=== PATIENT | female | born 1940 | race Caucasian/White ===

== ENCOUNTER 2016-04-06 14:04 | Emergency (ER) | payer OTHER ==
[~2016-04-06] VITALS: Ht 165.1 cm; Wt 90.0 kg
[~2016-04-06 14:04] MED LIST: AMLO-218 PO; BENA40TA41 PO; CARV6.25 PO; FLUO20CA38 PO; FURO-109 PO; GLIM4TAB PO; HYD25 PO; LORA0.5T PO; METF1000 PO; OMEP20CA16 PO; POTA8TAB2 PO; PROTONIX PAL; STOOL SOFTNER; VITAMIN D; ZOC10 PO
[2016-04-06 14:06] VITALS: Ht 165.1 cm; Wt 90.0 kg
[2016-04-06] MEDS ORDERED: SOD CHLORIDE 0.9% 1,000 ML IV STA (14:16)
[2016-04-06 14:32] LABS: BASOPHILS % 0.3 % (0.0-2.0); EOSINOPHILS # 0.2 10^3/ul (0.0-0.5); EOSINOPHILS % 2.8 % (0.0-7.0); HEMATOCRIT 41.2 % (37.0-47.0); HEMOGLOBIN 14.5 g/dl (12.0-16.0); LYMPHOCYTES # 1.6 10^3/ul (0.8-2.9); LYMPHOCYTES % 21.2 % (15.0-51.0); MEAN CORPUSCULAR HGB CONC 35.1 g/dl (32.0-37.0); MEAN CORPUSCULAR VOLUME 82.6 fl (82.0-101.0); MONOCYTE # 0.3 10^3/ul (0.3-0.9); MONOCYTES % 4.3 % (0.0-11.0); NEUTROPHIL # 5.3 10^3/ul (1.6-7.5); NEUTROPHILS % 71.4 % (39.0-77.0); PLATELET COUNT 245 10^3/UL (140-440); RED BLOOD COUNT 4.99 10^6/ul (4.20-5.40); RED CELL DISTRIBUTION WIDTH 13.4 % (11.5-14.5); UNCORRECTED WBC 7.4 10^3/ul (4.8-10.8); WHITE BLOOD COUNT 7.4 10^3/ul (4.8-10.8)
[2016-04-06 14:33] LABS: CONDITION 1
[2016-04-06 14:36] LABS: CHLORIDE 99 mmol/L (97-110)
[2016-04-06 14:37] LABS: POTASSIUM 3.2 mmol/L (3.5-5.1); SODIUM 143 mmol/L (135-144)
[2016-04-06 14:38] LABS: INR 0.91; PROTIME 12.3 Sec (12.2-14.2)
[2016-04-06 14:39] LABS: ANION GAP 16 (8-16); CARBON DIOXIDE 31 mmol/L (21-31); CREATININE 0.85 mg/dl (0.44-1.00); PARTIAL THROMBOPLASTIN TIME 28.6 Sec (25.0-35.0)
[2016-04-06 14:40] LABS: BLOOD UREA NITROGEN 20 mg/dl (7-20); CALCIUM 9.1 mg/dl (8.4-10.2); GLUCOSE 319 mg/dl (70-220)
--- NOTE | 2016-04-06 14:54 | RADRPT ---
PROCEDURE: XR Chest. CLINICAL INDICATION: Anxiety, chest pain TECHNIQUE: Anterior chest x-ray. COMPARISON: 08/17/2014 FINDINGS: The lungs are clear. No pleural effusion identified. There is no evidence of pneumothorax. The heart size is large. There is atherosclerotic calcification of the aorta. The cardiomediastina l silhouette is unremarkable. The soft tissues are normal. Osseous structures are unremarkable. IMPRESSION: 1. No acute disease is seen in the chest. 2. Cardiomegaly. 3. Atherosclerotic calcification of the aorta. RPTAT: QQ .Ryan Edwards MD, Date Time Electronically viewed and signed by .Ryan Edwards MD, on 04/06/2016 14:54 .M/
[2016-04-06 14:59] LABS: ADD UMIC YES; URINE BILIRUBIN (Dip) NEGATIVE (NEGATIVE); URINE BLOOD (Dip) NEGATIVE (NEGATIVE); URINE COLOR LT. YELLOW (YELLOW); URINE GLUCOSE (Dip) >=1000 % (NEGATIVE); URINE KETONES (Dip) NEGATIVE (NEGATIVE); URINE LEUKOCYTE ESTERASE (Dip) NEGATIVE (NEGATIVE); URINE NITRITE (Dip) NEGATIVE (NEGATIVE); URINE TOTAL PROTEIN (Dip) 1+ (NEGATIVE); URINE UROBILINOGEN (Dip) 0.2 E.U./dL (0.1-1.0)
[2016-04-06 15:16] LABS: SQUAMOUS EPITHELIAL CELL,UR FEW; URINE RBCS 0-2 /HPF (0)
[2016-04-06 15:17] LABS: TROPONIN-I < 0.012 ng/ml (0.00-0.12)
[2016-04-06] MEDS ORDERED: ALPRAZOLAM 0.25 MG TAB PO ONE (16:00)
[2016-04-06] MEDS ORDERED: POTASSIUM CHLORIDE (SR) 20 MEQ TAB PO STA (16:19)
[2016-04-06] MEDS ORDERED: HYDR25CA PO (16:26)
--- NOTE | 2016-04-06 16:35 | ERD ---
ER Documentation Chief Complaint Date/Time DATE: 04/06/16 TIME: 16:28 Chief Complaint anxiety ROS All systems reviewed and are negative except as per history of present illness. Medications Home Meds Active Scripts Hydroxyzine Pamoate* (Vistaril*) 25 Mg Capsule, 25 MG PO Q6H Y for ANXIETY, #10 CAP Prov:ADDY MCCAULEY DO 04/06/16 Reported Medications [Vitamin D] No Conflict Check 12/06/15 [Stool Softner] No Conflict Check 12/06/15 [Protonix] No Conflict Check, 40 MG PAL 12/06/15 Omeprazole* (Omeprazole*) 20 Mg Capsule.dr, 20 MG PO DAILY, CAP 08/17/14 Fluoxetine Hcl* (Prozac*) 20 Mg Capsule, 20 MG PO DAILY, CAP 08/17/14 Hydrochlorothiazide* (Hydrochlorothiazide*) 25 Mg Tab, 25 MG PO DAILY, TAB 08/17/14 Lorazepam* (Lorazepam*) 0.5 Mg Tablet, 0.5 MG PO HS Y for ANXIETY, TAB 08/17/14 Glimepiride* (Glimepiride*) 4 Mg Tablet, 4 MG PO DAILY, TAB 08/17/14 Simvastatin (Simvastatin) 10 Mg Tablet, 10 MG PO HS, TAB 08/17/14 Potassium Chloride* (Klor-Con*) 8 Meq Tablet.sa, 8 MEQ PO DAILY, TAB 08/17/14 Metformin Hcl* (Metformin Hcl*) 1,000 Mg Tablet, 1000 MG PO BID, TAB 08/17/14 Furosemide* (Lasix*) 40 Mg Tablet, 40 MG PO DAILY, TAB 08/17/14 Carvedilol* (Coreg*) 6.25 Mg Tablet, 6.25 MG PO BID, TAB 08/17/14 Benazepril Hcl* (Benazepril Hcl*) 40 Mg Tablet, 40 MG PO DAILY, TAB 08/17/14 Amlodipine Besylate* (Norvasc*) 10 Mg Tablet, 10 MG PO DAILY, TAB 08/17/14 Allergies Allergies: Coded Allergies: codeine (Verified Allergy, Mild, 08/17/14) morphine (Verified Allergy, Unknown, 08/17/14) PMhx/Soc History of Surgery: Yes (HYSTERECTOMY, CHOLECYSESTOMY, LOWER BACK TUMOR REMOVAL ) Anesthesia Reaction: No Hx Neurological Disorder: No Hx Respiratory Disorders: No Hx Cardiac Disorders: Yes (HYPERTENSION) Hx Psychiatric Problems: Yes (DEPRESSION) Hx Miscellaneous Medical Probl: Yes (HYPERLIPIDEMIA) Hx Alcohol Use: No Hx Substance Use: No Hx Tobacco Use: No Smoking Status: Never smoker Physical Exam Vitals Vital Signs Date Time Temp Pulse Resp B/P Pulse Ox O2 Delivery O2 Flow Rate FiO2 04/06/16 14:27 Nasal Cannula 2 04/06/16 14:06 98.1 88 20 158/85 99 Physical Exam Const: [] Head: Atraumatic Eyes: Normal Conjunctiva ENT: Normal External Ears, Nose and Mouth. Neck: Full range of motion..~ No meningismus. Resp: Clear to auscultation bilaterally Cardio: Regular rate and rhythm, no murmurs Abd: Soft, non tender, non distended. Normal bowel sounds Skin: No petechiae or rashes Back: No midline or flank tenderness Ext: No cyanosis, or edema Neur: Awake and alert Psych: Normal Mood and Affect Result Diagram: 04/06/16 1414 04/06/16 1414 Results 24 hrs Laboratory Tests Test 04/06/16 14:14 04/06/16 14:40 Activated Partial Thromboplast Time 28.6Sec Anion Gap 16 Basophils # 0.010^3/ul Basophils % 0.3% Blood Urea Nitrogen 20mg/dl Calcium Level 9.1mg/dl Carbon Dioxide Level 31mmol/L Chloride Level 99mmol/L Creatinine 0.85mg/dl Eosinophils # 0.210^3/ul Eosinophils % 2.8% Glucose Level 319mg/dl Hematocrit 41.2% Hemoglobin 14.5g/dl INR International Normalized Ratio 0.91 Lymphocytes # 1.610^3/ul Lymphocytes % 21.2% Mean Corpuscular Hemoglobin 29.0pg Mean Corpuscular Hemoglobin Concent 35.1g/dl Mean Corpuscular Volume 82.6fl Mean Platelet Volume 9.0fl Monocytes # 0.310^3/ul Monocytes % 4.3% Neutrophils # 5.310^3/ul Neutrophils % 71.4% Nucleated Red Blood Cells # 0.010^3/ul Nucleated Red Blood Cells % 0.0/100WBC Platelet Count 36859^3/UL Potassium Level 3.2mmol/L Prothrombin Time 12.3Sec Prothrombin Time Ratio 1.0 Red Blood Count 4.9910^6/ul Red Cell Distribution Width 13.4% Sodium Level 143mmol/L Troponin I < 0.012ng/ml White Blood Count 7.410^3/ul Urine Bilirubin NEGATIVE Urine Clarity CLEAR Urine Color LT. YELLOW Urine Glucose >=1000% Urine Hemoglobin NEGATIVE Urine Ketones NEGATIVE Urine Leukocyte Esterase NEGATIVE Urine Microscopic RBC 0-2/HPF Urine Microscopic WBC 0-2/HPF Urine Nitrite NEGATIVE Urine Specific [place] 1.020 Urine Squamous Epithelial Cells FEW Urine Total Protein 1+ Urine Urobilinogen 0.2 E.U./dL Urine pH 6.5 Current Medications Medications (Trade) Dose Ordered Sig/Nora Route PRN Reason Start Time Stop Time Status Last Admin Dose Admin Sodium Chloride (NS) 1,000 ml @ 1,000 mls/hr Q1H STAT IV 04/06/16 14:16 04/06/16 15:15 DC 04/06/16 14:39 Alprazolam (Xanax) 0.25 mg ONCE ONCE PO 04/06/16 16:00 04/06/16 16:01 DC 04/06/16 15:59 Potassium Chloride (Klor-Con 20) 40 meq ONCE STAT PO 04/06/16 16:19 04/06/16 16:20 UNV Procedures/MDM Likely anxiety reaction a 75-year-old female. Cardiac and metabolic workup obtained because of patient's age and multiple risk factors for acute coronary syndrome. Had no signs of infection or coronary difficulty. Patient did not have chest pain or shortness of breath [place] feeling of numbness in the whole body. Elbow suspicion receive she will ask accident as the patient has no focal symptoms and a normal neurological exam. She started to feel better the emergency room without treatment. She was given a liter of normal saline for elevated sugar. I gave her a small 0.25 mg Xanax and she felt much better. Family is at the bedside. Admitted discharge with instructions to see her primary care doctor in the next 2 days and return to the ER for any acute changes EKG interpretation: Normal sinus rhythm rate of 84, left axis deviation, left and said to fascicular block, no ST or T-wave changes concerning for acute ischemia, QT of 486 monitoring analyst interpretation: Normal sinus rhythm without arrhythmia Chest x-ray interpretation: No acute process, no widened mediastinum, no pneumothorax, no infiltrates, no fractures Departure Diagnosis: Primary Impression: Paresthesia Additional Impression: Anxiety attack Condition: Stable Patient Instructions: Anxiety Reaction, Paraesthesias Additional Instructions: Llame al doctor MAANA y padmini talia VIKTOR PARA DENTRO DE 1-2 WEST.Dgale a la secretaria que nosotros le instruimos hacer esta viktor.Avise o llame si brown condicin se empeora antes de la viktor. Regresa aqui si peor o no mejor. ADDY MCCAULEY DO Apr 06, 2016 16:35
== END 2016-04-06 16:49 | disposition home or self-care (01) ==
LOC: E/R 14:04
DX: R20.2 Paresthesia of skin (principal); I10 Essential (primary) hypertension; E11.9 Type 2 diabetes mellitus without complications; R07.9 Chest pain, unspecified; Z79.84 Long term (current) use of oral hypoglycemic drugs
CPT/HCPCS: 36415; 71010; 80048; 81001; 84484; 85025; 85610; 85730; 99285; J7030; 81003; 93005

== ENCOUNTER 2016-06-29 10:06 | Inpatient (IN) | payer OTHER ==
[~2016-06-29] VITALS: Ht 160 cm; Wt 97.3 kg
[~2016-06-29 10:06] MED LIST changes: +HYDR25CA PO
[2016-06-29 10:15] VITALS: Ht 160 cm; Wt 97.3 kg
[2016-06-29] MEDS ORDERED: ALBUTEROL 0.5% (NEB) 2.5 MG/0.5 ML AMP INH STA (11:52)
[2016-06-29] MEDS ORDERED: METHYLPREDNISOLONE 125 MG INJ IV STA (11:52)
[2016-06-29] MEDS ORDERED: IPRATROPIUM (NEB) 0.5 MG/2.5 ML AMP INH STA (11:52)
[2016-06-29 12:37] LABS: ADD SCAN DIFF NO
[2016-06-29 12:40] LABS: BASOPHILS % 0.5 % (0.0-2.0); EOSINOPHILS # 0.2 10^3/ul (0.0-0.5); EOSINOPHILS % 3.2 % (0.0-7.0); HEMATOCRIT 38.8 % (37.0-47.0); HEMOGLOBIN 13.2 g/dl (12.0-16.0); LYMPHOCYTES # 1.4 10^3/ul (0.8-2.9); LYMPHOCYTES % 25.3 % (15.0-51.0); MEAN CORPUSCULAR HEMOGLOBIN 28.8 pg (29.0-33.0); MEAN CORPUSCULAR VOLUME 84.5 fl (82.0-101.0); MEAN PLATELET VOLUME 10.2 fl (7.4-10.4); MONOCYTE # 0.5 10^3/ul (0.3-0.9); MONOCYTES % 8.3 % (0.0-11.0); NEUTROPHIL # 3.4 10^3/ul (1.6-7.5); PLATELET COUNT 192 10^3/UL (140-415); RED BLOOD COUNT 4.59 10^6/ul (4.20-5.40); RED CELL DISTRIBUTION WIDTH 13.2 % (11.5-14.5); WHITE BLOOD COUNT 5.5 10^3/ul (4.8-10.8)
--- NOTE | 2016-06-29 12:53 | RADRPT ---
PROCEDURE: XR Chest. CLINICAL INDICATION: Asthma exacerbation TECHNIQUE: Chest AP portable. COMPARISON: 04/06/2016 FINDINGS: The mediastinal structures are unremarkable. There is calcification of the thoracic aorta (consiste nt with atherosclerosis). There is moderate cardiomegaly. The pulmonary vascularity is normal. There is bibasilar subsegmental atelectasis / patchy consolidations. The pleural spaces are unremarkable . There are senescent changes of the axial skeleton. IMPRESSION: Moderate cardiomegaly Bibasilar subsegmental atelectasis / patchy consolidations RPTAT: HGDB .Sagar Acevedo MD, Date Time Electronically viewed and signed by .Sagar Acevedo MD, on 06/29/2016 12:53 .B/
[2016-06-29 12:58] LABS: ALBUMIN 3.7 g/dl (3.3-4.9)
[2016-06-29 12:59] LABS: CHLORIDE 100 mmol/L (97-110); POTASSIUM 3.2 mmol/L (3.5-5.1); SODIUM 140 mmol/L (135-144)
[2016-06-29] MEDS ORDERED: CEFTRIAXONE 1 GM/50 ML (PMX) 50 ML IVPB ONE (13:00)
[2016-06-29 13:01] LABS: ALBUMIN/GLOBULIN RATIO 1.08; ANION GAP 14 (8-16); ASPARTATE AMINO TRANSFERASE 20 IU/L (15-46); BILIRUBIN,INDIRECT 0.2 mg/dl (0-1.1); BILIRUBIN,TOTAL 0.2 mg/dl (0.2-1.3); CARBON DIOXIDE 29 mmol/L (21-31); CREATININE 0.75 mg/dl (0.44-1.00); TOTAL PROTEIN 7.1 g/dl (6.1-8.1)
[2016-06-29 13:02] LABS: ALANINE AMINOTRANSFERASE 34 IU/L (13-69); ALKALINE PHOSPHATASE 87 IU/L (42-121); BLOOD UREA NITROGEN 15 mg/dl (7-20); CALCIUM 8.4 mg/dl (8.4-10.2); GLUCOSE 154 mg/dl (70-220)
[2016-06-29 13:18] LABS: TROPONIN-I < 0.012 ng/ml (0.00-0.12)
[2016-06-29 13:19] LABS: ADD UMIC YES; URINE BILIRUBIN (Dip) NEGATIVE (NEGATIVE); URINE BLOOD (Dip) NEGATIVE (NEGATIVE); URINE COLOR YELLOW (YELLOW); URINE GLUCOSE (Dip) NEGATIVE (NEGATIVE); URINE KETONES (Dip) NEGATIVE (NEGATIVE); URINE LEUKOCYTE ESTERASE (Dip) NEGATIVE (NEGATIVE); URINE NITRITE (Dip) NEGATIVE (NEGATIVE); URINE TOTAL PROTEIN (Dip) 2+ (NEGATIVE); URINE UROBILINOGEN (Dip) 1.0 E.U./dL (0.1-1.0)
[2016-06-29 13:30] LABS: URINE RBCS 0-2 /HPF (0)
[2016-06-29] MEDS ORDERED: AZITHROMYCIN 500MG/NS (PMX) 250 ML IVPB ONE (13:30)
[2016-06-29 13:33] LABS: SQUAMOUS EPITHELIAL CELL,UR MODERATE
--- NOTE | 2016-06-29 13:38 | ERA ---
ER Documentation Chief Complaint Date/Time DATE: 06/29/16 TIME: 13:34 Chief Complaint FLU X 5 DAYS HPI 76-year-old woman with multiple medical conditions including asthma presents with 4 days of shortness of breath, cough, wheezing. She also complains of sharp nonexertional nonradiating chest pain precipitated by cough as well as body aches and fevers. She denies calf or leg swelling, no vomiting or diarrhea , no headache or blurry vision. Patient denies dysuria. Patient denies recent travel or recent antibiotic use. ROS All systems reviewed and are negative except as per history of present illness. Medications Home Meds Active Scripts Hydroxyzine Pamoate* (Vistaril*) 25 Mg Capsule, 25 MG PO Q6H Y for ANXIETY, #10 CAP Prov:ADDY MCCAULEY DO 04/06/16 Reported Medications Omeprazole* (Omeprazole*) 20 Mg Capsule.dr, 20 MG PO DAILY, CAP 08/17/14 Fluoxetine Hcl* (Prozac*) 20 Mg Capsule, 20 MG PO DAILY, CAP 08/17/14 Hydrochlorothiazide* (Hydrochlorothiazide*) 25 Mg Tab, 25 MG PO DAILY, TAB 08/17/14 Lorazepam* (Lorazepam*) 0.5 Mg Tablet, 0.5 MG PO HS Y for ANXIETY, TAB 08/17/14 Glimepiride* (Glimepiride*) 4 Mg Tablet, 4 MG PO DAILY, TAB 08/17/14 Simvastatin (Simvastatin) 10 Mg Tablet, 10 MG PO HS, TAB 08/17/14 Potassium Chloride* (Klor-Con*) 8 Meq Tablet.sa, 8 MEQ PO DAILY, TAB 08/17/14 Metformin Hcl* (Metformin Hcl*) 1,000 Mg Tablet, 1000 MG PO BID, TAB 08/17/14 Furosemide* (Lasix*) 40 Mg Tablet, 40 MG PO DAILY, TAB 08/17/14 Carvedilol* (Coreg*) 6.25 Mg Tablet, 6.25 MG PO BID, TAB 08/17/14 Benazepril Hcl* (Benazepril Hcl*) 40 Mg Tablet, 40 MG PO DAILY, TAB 08/17/14 Amlodipine Besylate* (Norvasc*) 10 Mg Tablet, 10 MG PO DAILY, TAB 08/17/14 Discontinued Reported Medications [Vitamin D] No Conflict Check 12/06/15 [Stool Softner] No Conflict Check 12/06/15 [Protonix] No Conflict Check, 40 MG PAL 12/06/15 Allergies Allergies: Coded Allergies: codeine (Verified Allergy, Mild, 06/29/16) morphine (Verified Allergy, Unknown, 06/29/16) PMhx/Soc Obesity, hiatal hernia, gastroesophageal reflux disease, asthma, diabetes mellitus, hypertension, coronary artery disease, congestive heart failure with a left ventricular ejection fraction of 60% Medical and Surgical Hx: pt denies Medical Hx History of Surgery: Yes (HYSTERECTOMY, CHOLECYSESTOMY, LOWER BACK TUMOR REMOVAL ) Anesthesia Reaction: No Hx Neurological Disorder: No Hx Respiratory Disorders: No Hx Cardiac Disorders: Yes (HYPERTENSION) Hx Psychiatric Problems: Yes (DEPRESSION) Hx Miscellaneous Medical Probl: Yes (HYPERLIPIDEMIA) Hx Alcohol Use: No Hx Substance Use: No Hx Tobacco Use: No Smoking Status: Never smoker FmHx Family History: diabetes Physical Exam Vitals Vital Signs Date Time Temp Pulse Resp B/P Pulse Ox O2 Delivery O2 Flow Rate FiO2 06/29/16 12:42 Nasal Cannula 2 06/29/16 12:02 52 17 97 21 06/29/16 10:15 98.1 71 20 187/81 94 Physical Exam GENERAL: Well-developed, well-nourished, dyspneic, afebrile HEENT: Moist mucous membranes, pink conjunctiva, no cervical spine tenderness or step-off deformities, no goiter, no jaundice or icterus, extraocular movements intact without pain. No submandibular induration, and no pharyngeal erythema NEURO: Alert and oriented 3, cranial nerves II through XII intact bilaterally, pupils equal round reactive to light, no focal deficits or facial asymmetry, sensation intact distally Strength 5/5 in upper and lower extremities bilaterally CARDIAC: Regular rate and rhythm, no murmurs rubs or gallops LUNGS: Bilateral wheezing, no crackles or stridor ABDOMEN: Soft nontender, no guarding, no rigidity, no rebound, no psoas sign no obturator sign. Normoactive bowel sounds SKIN: Warm and dry to touch, no abrasions, contusions, or hematomas, no lacerations, no ecchymosis, no target lesions, and without ulcers EXTREMITIES: No clubbing cyanosis or edema, calves are bilaterally symmetrical, no Homans sign, no popliteal cord sign. Distal pulses equal and bilateral PSYCH: Normal affect without agitation or irritability Result Diagram: 06/29/16 1220 06/29/16 1220 Results 24 hrs Laboratory Tests Test 06/29/16 12:20 06/29/16 12:45 White Blood Count 5.510^3/ul Red Blood Count 4.5910^6/ul Hemoglobin 13.2g/dl Hematocrit 38.8% Mean Corpuscular Volume 84.5fl Mean Corpuscular Hemoglobin 28.8pg Mean Corpuscular Hemoglobin Concent 34.0g/dl Red Cell Distribution Width 13.2% Platelet Count 61609^3/UL Mean Platelet Volume 10.2fl Neutrophils % 62.0% Lymphocytes % 25.3% Monocytes % 8.3% Eosinophils % 3.2% Basophils % 0.5% Nucleated Red Blood Cells % 0.0/100WBC Neutrophils # 3.410^3/ul Lymphocytes # 1.410^3/ul Monocytes # 0.510^3/ul Eosinophils # 0.210^3/ul Basophils # 0.010^3/ul Nucleated Red Blood Cells # 0.010^3/ul Sodium Level 140mmol/L Potassium Level 3.2mmol/L Chloride Level 100mmol/L Carbon Dioxide Level 29mmol/L Anion Gap 14 Blood Urea Nitrogen 15mg/dl Creatinine 0.75mg/dl Glucose Level 154mg/dl Calcium Level 8.4mg/dl Total Bilirubin 0.2mg/dl Direct Bilirubin 0.00mg/dl Indirect Bilirubin 0.2mg/dl Aspartate Amino Transf (AST/SGOT) 20IU/L Alanine Aminotransferase (ALT/SGPT) 34IU/L Alkaline Phosphatase 87IU/L Troponin I < 0.012ng/ml Total Protein 7.1g/dl Albumin 3.7g/dl Globulin 3.40g/dl Albumin/Globulin Ratio 1.08 Lipase 50U/L Urine Color YELLOW Urine Clarity CLEAR Urine pH 6.0 Urine Specific [place] 1.025 Urine Ketones NEGATIVE Urine Nitrite NEGATIVE Urine Bilirubin NEGATIVE Urine Urobilinogen 1.0 E.U./dL Urine Leukocyte Esterase NEGATIVE Urine Microscopic RBC 0-2/HPF Urine Microscopic WBC 0-2/HPF Urine Squamous Epithelial Cells MODERATE Urine Hyaline Casts OCCASIONAL Urine Hemoglobin NEGATIVE Urine Glucose NEGATIVE% Urine Total Protein 2+ Current Medications Medications (Trade) Dose Ordered Sig/Nora Route PRN Reason Start Time Stop Time Status Last Admin Dose Admin Albuterol (Proventil 0.5% (Neb)) 10 mg ONCE STAT INH 06/29/16 11:52 06/29/16 11:55 DC 06/29/16 12:02 Ipratropium [place] (Atrovent 0.02% (Neb)) 1 mg ONCE STAT INH 06/29/16 11:52 06/29/16 11:55 DC 06/29/16 12:02 Methylprednisolone Sodium Succinate 125 mg 125 mg ONCE STAT IV 06/29/16 11:52 06/29/16 11:55 DC 06/29/16 12:29 Ceftriaxone Sodium 50 ml @ 100 mls/hr ONCE ONCE IVPB 06/29/16 13:00 06/29/16 13:29 DC 06/29/16 13:17 Azithromycin (Zithromax 500mg/ NS (Pmx)) 250 ml @ 250 mls/hr ONCE ONCE IVPB 06/29/16 13:30 06/29/16 14:29 DC 06/29/16 13:33 Procedures/MDM IV line was established patient was placed on electronic device monitor rhythm strip revealed a sinus rhythm at about 60 bpm with upright P and T waves. Patient was afebrile. Blood cultures have been ordered results are pending I will follow-up. Oxygen saturation initially low 92%. EKG performed, read by me: Sinus bradycardia 55 bpm, left axis deviation, narrow QRS complex, no concerning ST elevations or depressions noted. One view chest x-ray performed, read by me revealed cardiomegaly and bilateral infiltrates, no pneumothorax, no end of the diaphragm. I administered albuterol 10 mg via nebulizer, ipratropium 1 mg via nebulizer, methylprednisolone 125 mg IV. Given the patient's cough and initial respiratory symptoms I did administer ceftriaxone 1 g IV and azithromycin 500 mg IV. CBC was unremarkable, electrolytes revealed mild hypokalemia 3.2, liver function tests were normal, troponin was negative. Influenza A test was positive and I treated her here with Tamiflu 75 mg p.o. Patient has continued symptoms and will be admitted to telemetry setting for continued medical management and bronchodilator therapy. Critical Care: Time: 33 minutes, this was time separate from other procedures. Treatments/Evaluations: Close monitoring and treatment of unstable vital signs, cardiorespiratory, and neurologic status, while maintaining tight balance of fluid, respiratory, and cardiac interventions. Departure Diagnosis: Primary Impression: Asthma Qualified Code: J45.41 - Moderate persistent asthma with acute exacerbation Additional Impressions: Bilateral pneumonia Qualified Code: J18.9 - Pneumonia of both lower lobes due to infectious organism Influenza A Condition: NETTE Kessler MD Jun 29, 2016 13:38
[2016-06-29] MEDS ORDERED: OSELTAMIVIR 75 MG CAP PO ONE (15:00)
[2016-06-29 17:19] VITALS: PULSE 56
[2016-06-29] MEDS ORDERED: POTASSIUM CHLORIDE (SR) 20 MEQ TAB PO STA (17:29)
[2016-06-29] MEDS ORDERED: MAGNESIUM HYDROXIDE 30ML CUP PO PRN (17:30)
[2016-06-29] MEDS ORDERED: BISACODYL (EC) 5 MG TAB PO PRN (17:30)
[2016-06-29] MEDS ORDERED: NACL 0.9% 3 ML SYG IV SCH (17:30)
[2016-06-29] MEDS ORDERED: ONDANSETRON 4 MG INJ IV PRN (17:30)
[2016-06-29] MEDS ORDERED: ALBUTEROL/IPRATROPIUM (NEB) 3 ML AMP HHN PRN (18:00)
[2016-06-29] MEDS: hydrALAzine 20 MG INJ IV PRN (18:26)
[2016-06-29] MEDS ORDERED: DEXTROSE 50% 50 ML SYRINGE IV PRN ×2 (18:30)
[2016-06-29] MEDS ORDERED: GLUCAGON 1 MG INJ IM PRN (18:30)
[2016-06-29] MEDS ORDERED: GLUCOSE GEL 15 GRAM TUBE PO PRN ×2 (18:30)
[2016-06-29] MEDS ORDERED: GLUCOSE GEL 15 GRAM TUBE BUCCAL PRN (18:30)
[2016-06-29] MEDS: INSULIN ASPART [NOVOLOG] 3 ML PEN SC SCH ×3 (19:17→21:07)
[2016-06-29 20:00] VITALS: BP 163/67; PULSE 72; RESP 18
[2016-06-29] MEDS: ALBUTEROL/IPRATROPIUM (NEB) 3 ML AMP HHN SCH (20:00)
[2016-06-29] MEDS ORDERED: INSULIN GLARGINE [LANtus] 3 ML PEN SC SCH (20:00)
[2016-06-29] MEDS: CEFEPIME 1GM/50 ML (PMX) 50 ML IVPB SCH (20:59)
[2016-06-29] MEDS: FAMOTIDINE 20 MG TAB PO SCH (20:59)
[2016-06-29] MEDS: ATORVASTATIN 10 MG TAB PO SCH (20:59)
[2016-06-29] MEDS: OSELTAMIVIR 75 MG CAP PO SCH (20:59)
[2016-06-29] MEDS ORDERED: INSULIN ASPART [NOVOLOG] 3 ML PEN SC ONE (22:00)
[2016-06-29] MEDS: METHYLPREDNISOLONE 125 MG INJ IV SCH (22:28)
--- NOTE | 2016-06-29 22:45 | HP ---
DATE OF ADMISSION: 06/29/2016 TIME OF EVALUATION: 1700. REASON FOR ADMISSION: Flu-like symptoms. HISTORY OF PRESENT ILLNESS: This is a 76-year-old female with past medical history of essential hypertension, type 2 diabetes mellitus, dyslipidemia, and obesity, who came to the emergency room with chief complaint of subjective fevers, generalized body aches, malaise, and cough with sputum production that has been going on for the past 5 days. The patient verbalized that she went and saw her primary care physician, and the patient was treated with Z-PRATIMA with minimal improvement in her symptoms. The patient denied any chest pain. However, the patient was complaining of generalized body aches. The patient denied any vomiting or diarrhea. However, the patient was complaining of some nausea. The patient denied any dysuria or hematuria. In the emergency room, the patient's influenza A screen was positive. The patient's WBC was within normal limits. The patient's chest x-ray showed moderate cardiomegaly and bibasilar subsegmental atelectasis/patchy consolidations. The patient was treated with IV Zithromax and ceftriaxone, a single dose of Solu-Medrol, and a single dose of Tamiflu in the emergency room. PAST MEDICAL HISTORY: 1. Essential hypertension. 2. Type 2 diabetes mellitus. 3. Dyslipidemia. 4. Obesity. 5. Depression. PAST SURGICAL HISTORY: Hysterectomy, cholecystectomy, removal of a tumor from the back. HOME MEDICATIONS: 1. Vistaril 25 mg p.o. q. 6h. p.r.n. anxiety. 2. Omeprazole 20 mg p.o. daily. 3. Fluoxetine 20 mg p.o. daily. 4. Hydrochlorothiazide 25 mg p.o. daily. 5. Lorazepam 0.5 mg p.o. at bedtime p.r.n. anxiety. 6. Glimepiride 4 mg p.o. daily. 7. Simvastatin 10 mg p.o. at bedtime. 8. Potassium chloride 8 mEq p.o. daily. 9. Metformin 1000 mg p.o. b.i.d. 10. Lasix 40 mg p.o. daily. 11. Coreg 6.25 mg p.o. b.i.d. 12. Benazepril 40 mg p.o. daily. 13. Amlodipine 10 mg p.o. daily. ALLERGIES: 1. CODEINE. 2. MORPHINE. SOCIAL HISTORY: The patient lives at home. Denies any history of tobacco, alcohol, or illicit drug use. REVIEW OF SYSTEMS: A 12-point review of systems was made and review of systems was negative other than what is mentioned in history of present illness. PHYSICAL EXAMINATION: VITAL SIGNS: Temperature 98.1, pulse rate 56, respiratory rate 19, blood pressure 157/83, oxygen saturation 97% on low-flow O2. GENERAL: This is a morbidly-obese female lying in bed, in no apparent distress. HEENT: Head normocephalic and atraumatic. Eyes: Anicteric sclerae. Conjunctivae clear. ENT: Nasal septum is midline. Oral mucosa is moist. NECK: Supple. No JVD noticed. RESPIRATORY: Bilaterally diminished breath sounds, bilateral expiratory wheezing, and a few scattered rhonchi. CARDIAC: Regular rate and rhythm. S1, S2 heard. ABDOMEN: Abdomen soft, nontender, and nondistended. Bowel sounds positive in all 4 quadrants. GENITOURINARY: Deferred. EXTREMITIES: No cyanosis, no clubbing, no edema. Peripheral pulses palpable. NEUROLOGIC: The patient is awake, alert, and oriented. Cranial nerves are grossly intact. LABORATORY AND DIAGNOSTIC DATA: WBC 5.5, hemoglobin 13.2, hematocrit 38.8, platelet count 192. Sodium 140, potassium 3.2, chloride 100, carbon dioxide 29 , anion gap 14, BUN 15, creatinine 0.75, glucose 154. Calcium 8.4, AST 20, ALT 34, alkaline phosphatase 87. Troponin I less than 0.012. Urinalysis: Urine nitrite negative, urine leukocyte esterase negative. Urine microscopic: WBC 0-2, urine total protein 2+. Chest x-ray: Moderate cardiomegaly, bibasilar subsegmental atelectasis/patchy consolidations. 12-lead EKG: Sinus bradycardia, left axis deviation. IMPRESSION: This is a 76-year-old female with multiple comorbidities, who came to the emergency room with flu-like symptoms, who was confirmed to have influenza A, and also has possible underlying community-acquired pneumonia , who will be admitted here for further treatment and evaluation. ASSESSMENT AND PLAN: 1. Influenza A: The patient will be started on neuraminidase inhibitors. The patient will be placed on droplet precautions. 2. Possible underlying community-acquired pneumonia: The patient will be started on empiric antibiotics. Pancultures will be ordered. 3. Type 2 diabetes mellitus: The patient will be started on sliding scale insulin along with basal insulin and premeal insulin. Hemoglobin A1c will be obtained to evaluate the blood glucose control over the past few weeks. 4. Dyslipidemia: The patient's statins will be resumed. A fasting lipid panel will be obtained. 5. Essential hypertension: The patient's antihypertensives will be resumed. The patient will also be started on p.r.n. antihypertensives for systolic blood pressure greater than 160 mmHg. 6. Bronchospasms: The patient denied any history of asthma. The patient will be treated with steroids for significant bronchospasm. The patient will also be started on inhaled bronchodilators around the clock and on a p.r.n. basis. Plan. The patient will be admitted to inpatient telemetry floor. The patient will be started on a carbohydrate-controlled/low-cholesterol diet. The patient will be started on DVT prophylaxis and gastrointestinal prophylaxis. The patient will remain a FULL CODE. Activities will be as tolerated. The rest of the patient's management will be based on clinical course, the results of diagnostic studies, and inputs from consultants. Based on the patient's clinical presentation, she most probably requires at least a 2-midnights' stay for further management and evaluation of her clinical presentation. The case and management of this patient was fully discussed with Dr. Sanchez. DESMOND SANCHEZ MD, AM/ATILIO Conf#: [id number] DID#: [id number]
[2016-06-29 23:48] VITALS: BP 166/71; RESP 20
[2016-06-30] VITALS (13 sets, daily range): BP systolic 116–181; BP diastolic 65–90; PULSE 40–59; RESP 18
[2016-06-30] MEDS: LORAZEPAM 0.5 MG TAB PO PRN (01:59)
[2016-06-30] MEDS: ACCU-CHEK XX SCH (02:22)
[2016-06-30] MEDS: METHYLPREDNISOLONE 125 MG INJ IV SCH (05:48)
[2016-06-30 06:37] LABS: ADD SCAN DIFF NO; BASOPHILS % 0.2 % (0.0-2.0); HEMATOCRIT 41.1 % (37.0-47.0); HEMOGLOBIN 13.6 g/dl (12.0-16.0); LYMPHOCYTES # 1.1 10^3/ul (0.8-2.9); LYMPHOCYTES % 17.1 % (15.0-51.0); MEAN CORPUSCULAR HEMOGLOBIN 28.2 pg (29.0-33.0); MEAN CORPUSCULAR HGB CONC 33.1 g/dl (32.0-37.0); MEAN CORPUSCULAR VOLUME 85.3 fl (82.0-101.0); MEAN PLATELET VOLUME 10.7 fl (7.4-10.4); MONOCYTE # 0.1 10^3/ul (0.3-0.9); NEUTROPHIL # 5.1 10^3/ul (1.6-7.5); NEUTROPHILS % 79.9 % (39.0-77.0); PLATELET COUNT 229 10^3/UL (140-415); RED BLOOD COUNT 4.82 10^6/ul (4.20-5.40); RED CELL DISTRIBUTION WIDTH 13.2 % (11.5-14.5); WHITE BLOOD COUNT 6.4 10^3/ul (4.8-10.8)
[2016-06-30 06:44] LABS: CHOL/HDL RATIO 4.6 RATIO; MAGNESIUM 2.2 mg/dl (1.7-2.5); PHOSPHORUS 2.5 mg/dl (2.5-4.9)
[2016-06-30 06:44] LABS: ALBUMIN 3.8 g/dl (3.3-4.9); ALBUMIN/GLOBULIN RATIO 1.11; CALCIUM 8.5 mg/dl (8.4-10.2); CREATININE 0.64 mg/dl (0.44-1.00); POTASSIUM 3.8 mmol/L (3.5-5.1); TOTAL PROTEIN 7.2 g/dl (6.1-8.1)
[2016-06-30 07:11] LABS: THYROID STIMULATING HORMONE 0.647 MIU/L (0.465-4.680)
[2016-06-30] MEDS: INSULIN ASPART [NOVOLOG] 3 ML PEN SC SCH ×7 (08:13→21:04)
[2016-06-30] MEDS: FAMOTIDINE 20 MG TAB PO SCH ×2 (09:23→21:00)
[2016-06-30] MEDS: CEFEPIME 1GM/50 ML (PMX) 50 ML IVPB SCH ×2 (09:23→21:00)
[2016-06-30] MEDS: FUROSEMIDE 40 MG TAB PO SCH (09:23)
[2016-06-30] MEDS: HYDROCHLOROTHIAZIDE 25 MG TAB PO SCH (09:24)
[2016-06-30] MEDS: FLUOXETINE 20 MG CAP PO SCH (09:24)
[2016-06-30] MEDS: AMLODIPINE 10 MG TAB PO SCH (09:24)
[2016-06-30] MEDS: OSELTAMIVIR 75 MG CAP PO SCH ×2 (09:24→21:00)
[2016-06-30] MEDS: BENAZEPRIL 40 MG TAB PO SCH (09:24)
[2016-06-30] MEDS: ENOXAPARIN 40 MG/0.4 ML SYG SC SCH (09:28)
[2016-06-30] MEDS: ALBUTEROL/IPRATROPIUM (NEB) 3 ML AMP HHN SCH ×3 (10:01→20:27)
--- NOTE | 2016-06-30 10:06 | PN ---
Date/Time of Note Date/Time of Note DATE: 06/30/16 TIME: 10:06 Assessment/Plan VTE Prophylaxis VTE Prophylaxis Intervention: LMWH Lines/Catheters IV Catheter Type (from [facility]): Saline Lock Urinary Cath still in place: No Assessment/Plan Chief Complaint/Hosp Course 1. Influenza A: The patient will be continued on neuraminidase inhibitors. The patient will be placed on droplet precautions. 2. Possible underlying community-acquired pneumonia: The patient will be continued on empiric antibiotics. Pancultures pending. 3. Type 2 diabetes mellitus: The patient will be continued on sliding scale insulin along with basal insulin and premeal insulin. Hemoglobin A1c pending. 4. Dyslipidemia: Continue statins. 5. Essential hypertension: Continue antihypertensives. The patient will also be maintained on p.r.n. antihypertensives for systolic blood pressure greater than 160 mmHg. 6. Bronchospasms: The patient denied any history of asthma. The patient will be treated with steroids for significant bronchospasm. The patient will also be maintained on inhaled bronchodilators around the clock and on a p.r.n. basis. 7. Fluids, electrolytes, and nutrition. Carbohydrate controlled, low- cholesterol diet. 8. DVT prophylaxis. Subcutaneous Lovenox. 9. Gastrointestinal prophylaxis. Histamine 2 receptor blockers. 10. Plan. Continue current antimicrobials. Continue inhaled bronchodilators. Will taper down steroids. Case discussed with Dr. Cortés. Problems: Subjective 24 Hr Interval Summary Free Text/Dictation "Feeling better." Exam/Review of Systems Vital Signs Vitals Vital Signs Date Time Temp Pulse Resp B/P Pulse Ox O2 Delivery O2 Flow Rate FiO2 06/30/16 10:01 52 18 97 Nasal Cannula 2.0 06/30/16 07:12 98.6 140/65 06/29/16 23:15 21 Intake and Output 06/29/16 06/29/16 06/30/16 15:00 23:00 07:00 Intake Total 50 ml 200 ml Balance 50 ml 200 ml Exam GENERAL: This is a morbidly-obese female lying in bed, in no apparent distress. HEENT: Head normocephalic and atraumatic. Eyes: Anicteric sclerae. Conjunctivae clear. ENT: Nasal septum is midline. Oral mucosa is moist. NECK: Supple. No JVD noticed. RESPIRATORY: Bilaterally diminished breath sounds, bilateral expiratory wheezing, and a few scattered rhonchi. CARDIAC: Regular rate and rhythm. No obvious murmurs heard. ABDOMEN: Abdomen soft, nontender, and nondistended. Bowel sounds positive in all 4 quadrants. GENITOURINARY: Deferred. EXTREMITIES: No cyanosis, no clubbing, no edema. Peripheral pulses palpable. NEUROLOGIC: The patient is awake, alert, and oriented. Cranial nerves are grossly intact. Results Result Diagram: 06/30/16 0600 06/30/16 0600 Results 24 hrs Laboratory Tests Test 06/29/16 12:20 06/29/16 12:45 06/29/16 18:06 06/29/16 20:58 White Blood Count 5.5 # Red Blood Count 4.59 Hemoglobin 13.2 Hematocrit 38.8 Mean Corpuscular Volume 84.5 Mean Corpuscular Hemoglobin 28.8 L Mean Corpuscular Hemoglobin Concent 34.0 Red Cell Distribution Width 13.2 Platelet Count 192 Mean Platelet Volume 10.2 Neutrophils % 62.0 Lymphocytes % 25.3 Monocytes % 8.3 Eosinophils % 3.2 Basophils % 0.5 Nucleated Red Blood Cells % 0.0 Neutrophils # 3.4 Lymphocytes # 1.4 Monocytes # 0.5 Eosinophils # 0.2 Basophils # 0.0 Nucleated Red Blood Cells # 0.0 Sodium Level 140 Potassium Level 3.2 L Chloride Level 100 Carbon Dioxide Level 29 Anion Gap 14 Blood Urea Nitrogen 15 Creatinine 0.75 Glucose Level 154 Calcium Level 8.4 Total Bilirubin 0.2 Direct Bilirubin 0.00 Indirect Bilirubin 0.2 Aspartate Amino Transf (AST/SGOT) 20 Alanine Aminotransferase (ALT/SGPT) 34 Alkaline Phosphatase 87 Troponin I < 0.012 Total Protein 7.1 Albumin 3.7 Globulin 3.40 H Albumin/Globulin Ratio 1.08 Lipase 50 Urine Color YELLOW Urine Clarity CLEAR Urine pH 6.0 Urine Specific [place] 1.025 Urine Ketones NEGATIVE Urine Nitrite NEGATIVE Urine Bilirubin NEGATIVE Urine Urobilinogen 1.0 E.U./dL Urine Leukocyte Esterase NEGATIVE Urine Microscopic RBC 0-2 Urine Microscopic WBC 0-2 Urine Squamous Epithelial Cells MODERATE Urine Hyaline Casts OCCASIONAL Urine Hemoglobin NEGATIVE Urine Glucose NEGATIVE Urine Total Protein 2+ H Bedside Glucose 219 334 H Test 06/30/16 01:55 06/30/16 05:55 06/30/16 06:00 06/30/16 08:10 Bedside Glucose 209 222 H Phosphorus Level 2.5 Magnesium Level 2.2 Triglycerides Level 84 Cholesterol Level 178 LDL Cholesterol, Calculated 123 HDL Cholesterol 38 Cholesterol/HDL Ratio 4.6 Thyroid Stimulating Hormone (TSH) 0.647 White Blood Count 6.4 Red Blood Count 4.82 Hemoglobin 13.6 Hematocrit 41.1 Mean Corpuscular Volume 85.3 Mean Corpuscular Hemoglobin 28.2 L Mean Corpuscular Hemoglobin Concent 33.1 Red Cell Distribution Width 13.2 Platelet Count 229 Mean Platelet Volume 10.7 H Neutrophils % 79.9 H Lymphocytes % 17.1 Monocytes % 2.0 Eosinophils % 0.0 Basophils % 0.2 Nucleated Red Blood Cells % 0.0 Neutrophils # 5.1 Lymphocytes # 1.1 Monocytes # 0.1 L Eosinophils # 0.0 Basophils # 0.0 Nucleated Red Blood Cells # 0.0 Sodium Level 139 Potassium Level 3.8 Chloride Level 105 Carbon Dioxide Level 27 Anion Gap 11 Blood Urea Nitrogen 19 Creatinine 0.64 Glucose Level 230 H Calcium Level 8.5 Total Bilirubin 0.0 L Direct Bilirubin 0.00 Indirect Bilirubin 0.0 Aspartate Amino Transf (AST/SGOT) 19 Alanine Aminotransferase (ALT/SGPT) 30 Alkaline Phosphatase 90 Total Protein 7.2 Albumin 3.8 Globulin 3.40 H Albumin/Globulin Ratio 1.11 Vitamin D 1,25-Dihydroxy 32.4 Free Thyroxine 1.25 Medications Medications Current Medications Ondansetron HCl (Zofran Inj) 4 mg Q6H PRN IV NAUSEA AND/OR VOMITING; Start at 17:30 Acetaminophen (Tylenol Tab) 650 mg Q6H PRN PO PAIN LEVEL 1-3 OR FEVER; Start at 17:30 Magnesium Hydroxide (Milk Of Mag) 30 ml DAILY PRN PO CONSTIPATION; Start at 17:30 Bisacodyl (Dulcolax) 5 mg DAILY PRN PO CONSTIPATION; Start 06/29/16 at 17:30 Famotidine (Pepcid) 20 mg Q12 PO Last administered on 06/30/16 09:23; Admin Dose 20 MG; Start 06/29/16 at 21:00 Enoxaparin Sodium (Lovenox) 40 mg DAILY SC Last administered on 06/30/16 09:28 ; Admin Dose 40 MG; Start 06/30/16 at 09:00 Oseltamivir Phosphate 75 mg 75 mg BID PO Last administered on 06/30/16 09:24; Admin Dose 75 MG; Start 06/29/16 at 21:00 Cefepime HCl (Maxipime 1gm/50 ml (Pmx)) 50 ml @ 100 mls/hr Q12 IVPB Last administered on 06/30/16 09:23; Admin Dose 100 MLS/HR; Start 06/29/16 at 21:00 Methylprednisolone Sodium Succinate (Solu-Medrol) 60 mg Q8 IV Last administered on 06/30/16 05:48; Admin Dose 60 MG; Start 06/29/16 at 22:00 Insulin Glargine (Lantus) 10 unit DAILY@20 SC Last administered on 06/29/16 19 :55; Admin Dose 10 UNIT; Start 06/29/16 at 20:00 Diagnostic Test (Pha) (Accu-Chek) 1 ea 02 XX Last administered on 06/30/16 02: 22; Admin Dose 1 EA; Start 06/30/16 at 02:00 Hydralazine HCl (Apresoline) 10 mg Q6H PRN IV SbP>160 Last administered on 06/29 18:26; Admin Dose 10 MG; Start 06/29/16 at 18:00 Amlodipine Besylate (Norvasc) 10 mg DAILY PO Last administered on 06/30/16 09: 24; Admin Dose 10 MG; Start 06/30/16 at 09:00 Benazepril HCl (Lotensin) 40 mg DAILY PO Last administered on 06/30/16 09:24; Admin Dose 40 MG; Start 06/30/16 at 09:00 Carvedilol (Coreg) 6.25 mg BID PO Last administered on 06/30/16 09:29; Admin Dose 6.25 MG; Start 06/29/16 at 21:00 Fluoxetine HCl (Prozac) 20 mg DAILY PO Last administered on 06/30/16 09:24; Admin Dose 20 MG; Start 06/30/16 at 09:00 Furosemide (Lasix) 40 mg DAILY PO Last administered on 06/30/16 09:23; Admin Dose 40 MG; Start 06/30/16 at 09:00 Hydrochlorothiazide (Hydrochlorothiazide) 25 mg DAILY PO Last administered on 09:24; Admin Dose 25 MG; Start 06/30/16 at 09:00 Lorazepam (Ativan) 0.5 mg HS PRN PO ANXIETY Last administered on 06/30/16 01: 59; Admin Dose 0.5 MG; Start 06/29/16 at 18:00 Atorvastatin Calcium (Lipitor) 10 mg DAILY@21 PO Last administered on 20:59; Admin Dose 10 MG; Start 06/29/16 at 21:00 Miscellaneous Information 1 ea NOTE XX ; Start 06/29/16 at 18:30 Glucose (Glutose) 15 gm Q15M PRN PO DECREASED GLUCOSE; Start 06/29/16 at 18:30 Glucose (Glutose) 22.5 gm Q15M PRN PO DECREASED GLUCOSE; Start 06/29/16 at 18: 30 Dextrose (D50w Syringe) 25 ml Q15M PRN IV DECREASED GLUCOSE; Start 06/29/16 at 18:30 Dextrose (D50w Syringe) 50 ml Q15M PRN IV DECREASED GLUCOSE; Start 06/29/16 at 18:30 Glucagon (Glucagen) 1 mg Q15M PRN IM DECREASED GLUCOSE; Start 06/29/16 at 18:30 Glucose (Glutose) 15 gm Q15M PRN BUCCAL DECREASED GLUCOSE; Start 06/29/16 at 18 :30 DESMOND POTTS NP Jun 30, 2016 10:06
[2016-06-30] MEDS: METHYLPREDNISOLONE 40 MG INJ IV SCH ×2 (13:41→21:57)
[2016-06-30] MEDS ORDERED: GUAIFENESIN/DM 5ML CUP PO PRN (14:00)
[2016-06-30] MEDS: INSULIN GLARGINE [LANtus] 3 ML PEN SC SCH (19:58)
[2016-06-30] MEDS: ATORVASTATIN 10 MG TAB PO SCH (21:00)
[2016-06-30] MEDS ORDERED: INSULIN ASPART [NOVOLOG] 3 ML PEN SC ONE (21:30)
[2016-07-01] VITALS (12 sets, daily range): BP systolic 136–166; BP diastolic 63–72; PULSE 40–67; RESP 18–19
[2016-07-01] MEDS: ACCU-CHEK XX SCH (02:04)
[2016-07-01] MEDS: METHYLPREDNISOLONE 40 MG INJ IV SCH ×2 (05:36→21:34)
[2016-07-01] MEDS: ACETAMINOPHEN 325 MG TAB PO PRN (05:39)
[2016-07-01 06:50] LABS: ADD SCAN DIFF NO
[2016-07-01 07:09] LABS: BASOPHILS % 0.1 % (0.0-2.0); HEMATOCRIT 40.9 % (37.0-47.0); HEMOGLOBIN 13.3 g/dl (12.0-16.0); LYMPHOCYTES # 1.3 10^3/ul (0.8-2.9); LYMPHOCYTES % 10.5 % (15.0-51.0); MEAN CORPUSCULAR HGB CONC 32.5 g/dl (32.0-37.0); MEAN CORPUSCULAR VOLUME 86.1 fl (82.0-101.0); MEAN PLATELET VOLUME 10.9 fl (7.4-10.4); MONOCYTE # 0.3 10^3/ul (0.3-0.9); MONOCYTES % 2.7 % (0.0-11.0); NEUTROPHIL # 10.9 10^3/ul (1.6-7.5); NEUTROPHILS % 85.8 % (39.0-77.0); PLATELET COUNT 229 10^3/UL (140-415); RED BLOOD COUNT 4.75 10^6/ul (4.20-5.40); RED CELL DISTRIBUTION WIDTH 13.3 % (11.5-14.5); WHITE BLOOD COUNT 12.7 10^3/ul (4.8-10.8)
[2016-07-01 07:16] LABS: CALCIUM 8.7 mg/dl (8.4-10.2); CREATININE 0.79 mg/dl (0.44-1.00); POTASSIUM 3.7 mmol/L (3.5-5.1)
[2016-07-01 07:21] LABS: MAGNESIUM 2.2 mg/dl (1.7-2.5)
[2016-07-01] MEDS: ALBUTEROL/IPRATROPIUM (NEB) 3 ML AMP HHN SCH ×3 (07:57→19:50)
[2016-07-01] MEDS: INSULIN ASPART [NOVOLOG] 3 ML PEN SC SCH ×7 (08:19→21:00)
[2016-07-01] MEDS: ENOXAPARIN 40 MG/0.4 ML SYG SC SCH (08:20)
[2016-07-01] MEDS: FAMOTIDINE 20 MG TAB PO SCH ×2 (08:22→21:33)
[2016-07-01] MEDS: OSELTAMIVIR 75 MG CAP PO SCH ×2 (08:22→21:33)
[2016-07-01] MEDS: FLUOXETINE 20 MG CAP PO SCH (08:22)
[2016-07-01] MEDS: FUROSEMIDE 40 MG TAB PO SCH (08:22)
[2016-07-01] MEDS: AMLODIPINE 10 MG TAB PO SCH (08:22)
[2016-07-01] MEDS: HYDROCHLOROTHIAZIDE 25 MG TAB PO SCH (08:23)
[2016-07-01] MEDS: BENAZEPRIL 40 MG TAB PO SCH (08:23)
[2016-07-01] MEDS: CEFEPIME 1GM/50 ML (PMX) 50 ML IVPB SCH ×2 (08:30→21:33)
--- NOTE | 2016-07-01 10:26 | PN ---
Date/Time of Note Date/Time of Note DATE: 07/01/16 TIME: 10:21 Assessment/Plan VTE Prophylaxis VTE Prophylaxis Intervention: LMWH Lines/Catheters IV [facility]from [facility] Saline Lock Urinary Cath still in place: No Assessment/Plan Chief Complaint/Hosp Course 1. Influenza A: The patient will be continued on neuraminidase inhibitors. The patient is on droplet precautions. 2. Possible underlying community-acquired pneumonia: The patient will be continued on empiric antibiotics. Blood culture negative. 3. Type 2 diabetes mellitus: The patient will be continued on sliding scale insulin along with basal insulin and premeal insulin. Hemoglobin A1c 7.7. 4. Dyslipidemia. Continue statins. 5. Essential hypertension: Continue antihypertensives. The patient will also be maintained on p.r.n. antihypertensives for systolic blood pressure greater than 160 mmHg. 6. Bronchospasms: The patient denied any history of asthma. The patient will be treated with steroids for significant bronchospasm. The patient will also be maintained on inhaled bronchodilators around the clock and on a p.r.n. basis. 7. Sinus bradycardia. Heart rate as low as 40/min. Avoid AV cierra blocking agents. Will involve cardiology on the case. 8. Fluids, electrolytes, and nutrition. Carbohydrate controlled, low- cholesterol diet. 9. DVT prophylaxis. Subcutaneous Lovenox. 10. Gastrointestinal prophylaxis. Histamine 2 receptor blockers. 11. Plan. Continue current antimicrobials. Continue inhaled bronchodilators. Will taper down steroids. Obtain cardiology consult. Obtain CT scan of the brain and carotid Doppler. Case discussed with Dr. Unger. Problems: Subjective 24 Hr Interval Summary Free Text/Dictation The patient was complaining of dizziness. Blood sugars running on the higher side. Had episodes of bradycardia with the heart rate as low as 40/min. Exam/Review of Systems Vital Signs Vitals Vital Signs Date Time Temp Pulse Resp B/P Pulse Ox O2 Delivery O2 Flow Rate FiO2 07/01/16 08:00 44 07/01/16 07:57 2.0 07/01/16 07:57 19 98 Nasal Cannula 07/01/16 07:21 98.3 145/66 06/29/16 23:15 21 Intake and Output 06/30/16 06/30/16 07/01/16 15:00 23:00 07:00 Intake Total 450 ml 200 ml Balance 450 ml 200 ml Exam GENERAL: This is a morbidly-obese female lying in bed, in no apparent distress. HEENT: Head normocephalic and atraumatic. Eyes: Anicteric sclerae. Conjunctivae clear. ENT: Nasal septum is midline. Oral mucosa is moist. NECK: Supple. No JVD noticed. RESPIRATORY: Bilaterally diminished breath sounds, bilateral expiratory wheezing, and a few scattered rhonchi. CARDIAC: Regular rate and rhythm. No obvious murmurs heard. ABDOMEN: Abdomen soft, nontender, and nondistended. Bowel sounds positive in all 4 quadrants. GENITOURINARY: Deferred. EXTREMITIES: No cyanosis, no clubbing, no edema. Peripheral pulses palpable. NEUROLOGIC: The patient is awake, alert, and oriented. Cranial nerves are grossly intact. Results Result Diagram: 07/01/16 0536 07/01/16 0536 Results 24 hrs Laboratory Tests Test 06/30/16 11:44 06/30/16 17:35 06/30/16 20:59 07/01/16 02:02 Bedside Glucose 314 H 207 309 H 174 Test 07/01/16 05:36 07/01/16 08:15 White Blood Count 12.7 #H Red Blood Count 4.75 Hemoglobin 13.3 Hematocrit 40.9 Mean Corpuscular Volume 86.1 Mean Corpuscular Hemoglobin 28.0 L Mean Corpuscular Hemoglobin Concent 32.5 Red Cell Distribution Width 13.3 Platelet Count 229 Mean Platelet Volume 10.9 H Neutrophils % 85.8 H Lymphocytes % 10.5 L Monocytes % 2.7 Eosinophils % 0.0 Basophils % 0.1 Nucleated Red Blood Cells % 0.0 Neutrophils # 10.9 H Lymphocytes # 1.3 Monocytes # 0.3 Eosinophils # 0.0 Basophils # 0.0 Nucleated Red Blood Cells # 0.0 Sodium Level 138 Potassium Level 3.7 Chloride Level 102 Carbon Dioxide Level 30 Anion Gap 10 Blood Urea Nitrogen 26 H Creatinine 0.79 Glucose Level 205 Calcium Level 8.7 Phosphorus Level 3.0 Magnesium Level 2.2 Bedside Glucose 234 H Medications Medications Current Medications Ondansetron HCl (Zofran Inj) 4 mg Q6H PRN IV NAUSEA AND/OR VOMITING; Start at 17:30 Acetaminophen (Tylenol Tab) 650 mg Q6H PRN PO PAIN LEVEL 1-3 OR FEVER Last administered on 07/01/16t 05:39; Admin Dose 650 MG; Start 06/29/16 at 17:30 Magnesium Hydroxide (Milk Of Mag) 30 ml DAILY PRN PO CONSTIPATION; Start at 17:30 Bisacodyl (Dulcolax) 5 mg DAILY PRN PO CONSTIPATION; Start 06/29/16 at 17:30 Famotidine (Pepcid) 20 mg Q12 PO Last administered on 07/01/16 08:22; Admin Dose 20 MG; Start 06/29/16 at 21:00 Enoxaparin Sodium (Lovenox) 40 mg DAILY SC Last administered on 07/01/16 08:20 ; Admin Dose 40 MG; Start 06/30/16 at 09:00 Oseltamivir Phosphate 75 mg 75 mg BID PO Last administered on 07/01/16 08:22; Admin Dose 75 MG; Start 06/29/16 at 21:00 Cefepime HCl (Maxipime 1gm/50 ml (Pmx)) 50 ml @ 100 mls/hr Q12 IVPB Last administered on 07/01/16 08:30; Admin Dose 100 MLS/HR; Start 06/29/16 at 21:00 Diagnostic Test (Pha) (Accu-Chek) 1 ea 02 XX Last administered on 07/01/16 02: 04; Admin Dose 1 EA; Start 06/30/16 at 02:00 Hydralazine HCl (Apresoline) 10 mg Q6H PRN IV SbP>160 Last administered on 06/29 18:26; Admin Dose 10 MG; Start 06/29/16 at 18:00 Amlodipine Besylate (Norvasc) 10 mg DAILY PO Last administered on 07/01/16 08: 22; Admin Dose 10 MG; Start 06/30/16 at 09:00 Benazepril HCl (Lotensin) 40 mg DAILY PO Last administered on 07/01/16 08:23; Admin Dose 40 MG; Start 06/30/16 at 09:00 Carvedilol (Coreg) 6.25 mg BID PO Last administered on 06/30/16 21:01; Admin Dose 6.25 MG; Start 06/29/16 at 21:00 Fluoxetine HCl (Prozac) 20 mg DAILY PO Last administered on 07/01/16 08:22; Admin Dose 20 MG; Start 06/30/16 at 09:00 Furosemide (Lasix) 40 mg DAILY PO Last administered on 07/01/16 08:22; Admin Dose 40 MG; Start 06/30/16 at 09:00 Hydrochlorothiazide (Hydrochlorothiazide) 25 mg DAILY PO Last administered on 08:23; Admin Dose 25 MG; Start 06/30/16 at 09:00 Lorazepam (Ativan) 0.5 mg HS PRN PO ANXIETY Last administered on 06/30/16 01: 59; Admin Dose 0.5 MG; Start 06/29/16 at 18:00 Atorvastatin Calcium (Lipitor) 10 mg DAILY@21 PO Last administered on 21:00; Admin Dose 10 MG; Start 06/29/16 at 21:00 Miscellaneous Information 1 ea NOTE XX ; Start 06/29/16 at 18:30 Glucose (Glutose) 15 gm Q15M PRN PO DECREASED GLUCOSE; Start 06/29/16 at 18:30 Glucose (Glutose) 22.5 gm Q15M PRN PO DECREASED GLUCOSE; Start 06/29/16 at 18: 30 Dextrose (D50w Syringe) 25 ml Q15M PRN IV DECREASED GLUCOSE; Start 06/29/16 at 18:30 Dextrose (D50w Syringe) 50 ml Q15M PRN IV DECREASED GLUCOSE; Start 06/29/16 at 18:30 Glucagon (Glucagen) 1 mg Q15M PRN IM DECREASED GLUCOSE; Start 06/29/16 at 18:30 Glucose (Glutose) 15 gm Q15M PRN BUCCAL DECREASED GLUCOSE; Start 06/29/16 at 18 :30 Methylprednisolone Sodium Succinate (Solu-Medrol) 40 mg Q8 IV Last administered on 07/01/16 05:36; Admin Dose 40 MG; Start 06/30/16 at 14:00 Insulin Glargine (Lantus) 12 unit DAILY@20 SC Last administered on 06/30/16 19 :58; Admin Dose 12 UNIT; Start 06/30/16 at 20:00 Guaifenesin/ Dextromethorphan (Robitussin Dm Liquid Cup) 5 ml Q4H PRN PO Cough Last administered on 06/30/16 17:36; Admin Dose 5 ML; Start 06/30/16 at 14:00 DESMOND POTTS NP Jul 01, 2016 10:26
--- NOTE | 2016-07-01 16:19 | CONS ---
DATE OF ADMISSION: 06/29/2016 DATE OF CONSULTATION: 07/01/2016 TYPE OF CONSULTATION: Pulmonary. REFERRING PHYSICIAN: ALEN MORALES VOCATIONAL REHAB CONSULTANT. REASON FOR CONSULTATION: Bradycardia. CHIEF COMPLAINT: Flu-like symptoms. HISTORY OF PRESENT ILLNESS: Thank you for this referral. History obtained from the patient, review of the chart, discussion with Alen Morales and staff. This is a pleasant 76-year-old fem sarabjit with diabetes, hypertension, dyslipidemia who came to emergency room with the above complaint. The patient has had apparently cough, shortness of breath, subjective fever and body aches over the past few days. Started on Z-PRATIMA and it has not helped and so she came to emergency room. Influenza has been positive for influenza A. The patient noted to have marked bradycardia, heart rate as low as 40s to 50s. Per review of rhythm strip shows the patient has remained in sinus though with no e vidence of heart block. She is also on carvedilol, which was held this morning. She also has compl ained of some chest pain anteriorly which is intermittently, but is worse now over the past week on both sides of the chest and becomes mild to moderate in intensity and sharp. MEDICATIONS: Reviewed at home she is on: 1. Omeprazole. 2. Fluoxetine. 3. Hydrochlorothiazide. 4. Glimepiride. 5. Simvastatin. 6. Potassium. 7. Metformin. 8. Lasix. 9. Coreg 3.25 10. Benazepril 40. 11. Amlodipine of 10. ALLERGIES: CODEINE AND MORPHINE. PAST MEDICAL HISTORY: Diabetes, hypertension, dyslipidemia, obesity, depression. Also has some ___ _ as well. SOCIAL HISTORY: The patient lives at home, does not smoke or drink. FAMILY HISTORY: No reported coronary artery disease. REVIEW OF SYSTEMS: As above mentioned, denied all other except for above-mentioned. Patient also s aid she has had occasional dizziness, but no quin syncope. PHYSICAL EXAMINATION: VITAL SIGNS: Temperature 98.3, heart rate of 52, blood pressure 164/70, respiration rate of 18, sat urating 98%. HEENT: Normocephalic, atraumatic. Pupils are equal. Obese female in no acute distress. CARDIOVASCULAR: Bradycardic, systolic murmur. PULMONARY: With no wheezes heard. GASTROINTESTINAL: Obese, nontender. EXTREMITIES: With trivial lower extremity edema. NEUROLOGIC: Awake, responds alert. PSYCHIATRIC: Calm, pleasant. LABORATORY: Sodium 138, potassium 3.7, BUN of 26, creatinine 0.79, glucose 205. WBC of 12.7, hemog lobin 13.3, hemoglobin 229. EKG: Sinus bradycardia with T wave abnormality suggestive of anterior ischemia as well a possible i nferior ischemia. ASSESSMENT AND PLAN: 1. Marked sinus bradycardia, probably related to beta stephanie. 2. Chest pain, atypical. 3. Haemophilus flu. 4. Hypertension. 5. Diabetes. 6. Dyslipidemia. 7. Obesity. 8. Abnormal EKG. RECOMMENDATIONS: I cut down on the carvedilol to 3.125 b.i.d. withholding parameters. Will monitor on telemetry. Antibiotic, antiviral ____. I will order a CT coronary angiogram to rule out signif icant obstructive coronary artery disease given her symptoms. Abnormal EKG. Further recommendation after above results available. Thank you for this referral. We will continue to follow along with you. Dictated By: HARRIET ABRAHAM MD AV/ATILIO Conf#: [id number] DID#: [id number] CC: ALEN MORALES VOCATIONAL REHAB CONSULTANT;*EndCC*
--- NOTE | 2016-07-01 17:10 | RADRPT ---
PROCEDURE: US Carotids. CLINICAL INDICATION: Dizziness TECHNIQUE: Multiple sonographic of the carotid bifurcation region and vertebral arteries were obta ined utilizing lombardi scale, duplex and color-flow imaging. The images were reviewed on a PACS worksta tion. COMPARISON: No prior studies are available for comparison. FINDINGS: Evaluation of the right carotid bifurcation region reveals mild atherosclerotic disease. Evaluation of the left carotid bifurcation region reveals mild atherosclerotic disease. There is antegrade flow within the vertebral arteries bilaterally. RIGHT CAROTID MEASUREMENTS: Common Carotid Rutugn97.1 (cm/sec) Internal Carotid Artery - dceljgbx22.9 (cm/sec) Internal Carotid Artery - mid51.2 (cm/sec) Internal Carotid Artery - ykcnxl93.6 (cm/sec) Internal Carotid/Common Carotid1.4 LEFT CAROTID MEASUREMENTS: Common Carotid Gdbklk27.1 (cm/sec) Internal Carotid Artery - .6 (cm/sec) Internal Carotid Artery - mid54.1 (cm/sec) Internal Carotid Artery - idvfhv22.7 (cm/sec) Internal Carotid/Common Carotid1.0 IMPRESSION: 1. No evidence for hemodynamically significant carotid artery stenosis. 2. Normal antegrade flow in the vertebral arteries bilaterally. RPTAT: HPNM Physician Tiffany Date Time Electronically viewed and signed by Physician Tiffany on 07/01/2016 17:10 /
[2016-07-01] MEDS: hydrALAzine 20 MG INJ IV PRN (17:26)
--- NOTE | 2016-07-01 17:49 | RADRPT ---
Echocardiogram Report Patient Name: MAGNUS RASMUSSEN Gender: Female Date: 1940 Study Date: 01-Jul-2016 [facility] Attendant: Location: Ref. Physician: BRAYDEN ALVARADO Quality: Technically Difficult Study Procedures: Transthoracic echocardiogram with complete 2D, M-Mode, and doppler examination. Indications: Bradycardia. 2D/M Mode Doppler Measurement Value Normal Ranges Measurement Value Normal Ranges LVIDd 2D 5.1 3.5 - 5.6 cm AV Peak Norris 1.7 m/sec LVIDs 2D 3.4 2.1 - 4.1 cm AV Peak PG 11.7 mmHg LVPWd 2D 1.0 0.6 - 1.1 cm LVOT Peak Norris 1.1 m/sec IVSd 2D 0.9 0.6 - 1.1 cm LVOT Peak PG 5.1 mmHg AoR Diam 2D 2.6 2.0 - 3.7 cm MV E Peak Norris 0.7 m/sec EDV 2D 124.6 cm3 MV A Peak Norris 0.9 m/sec ESV 2D 38.1 cm3 MV E/A 0.8 MV Decel Time 307 msec MV Decel Sumner 2 MV E/A 0.8 TR Peak Norris 2.5 m/sec TR Peak PG 24.7 mmHg Findings Left Ventricle: Normal left ventricular systolic function. Normal left ventricular cavity size. Normal left ventricular wall thickness. Ejection fraction is visually estimated at 65 %. Abnormal Diastolic Function. Right Ventricle: Normal right ventricular size. Normal right ventricular systolic function. Left Atrium: The left atrium is normal in size. Upper limit of normal left atrial size. Right Atrium: The right atrium is normal in size. RA Pressure=3. Mitral Valve: Mild mitral leaflet calcification. Mild mitral valve regurgitation. Aortic Valve: No significant aortic stenosis or insufficiency. Tricuspid Valve: Estimated peak PA systolic pressure 39 mmHg. There is mild tricuspid regurgitation. Pulmonic Valve: There is trace pulmonic regurgitation. Pericardium: Normal pericardium with no significant pericardial effusion. Aorta: Normal aortic root. IVC: Normal size and normal respiratory collapse consistent with normal right atrial pressure. Conclusions 1.Normal left ventricular systolic function. Normal left ventricular cavity size. Normal left ventricular wall thickness. Ejection fraction is visually estimated at 65 %. Abnormal Diastolic Function. 2.Mild mitral leaflet calcification. Mild mitral valve regurgitation. 3.No significant aortic stenosis or insufficiency. 4.Estimated peak PA systolic pressure 39 mmHg. There is mild tricuspid regurgitation. 5.Normal size and normal respiratory collapse consistent with normal right atrial pressure. Electronically Signed By: Brayden Alvarado 01-Jul-2016 17:48:54 -0700 Patient Name: MAGNUS RASMUSSEN Study Date: 01-Jul-2016 [id number]
[2016-07-01] MEDS: INSULIN GLARGINE [LANtus] 3 ML PEN SC SCH (20:26)
[2016-07-01] MEDS: ATORVASTATIN 10 MG TAB PO SCH (21:33)
[2016-07-01] MEDS: LORAZEPAM 0.5 MG TAB PO PRN (21:48)
[2016-07-01] MEDS: NPH, HUMAN INSULIN ISOPHANE 3ML VIAL SC SCH (21:49)
[2016-07-02] VITALS (14 sets, daily range): BP systolic 155–178; BP diastolic 68–77; PULSE 48–58; RESP 16–20
[2016-07-02] MEDS: ACCU-CHEK XX SCH (01:19)
--- NOTE | 2016-07-02 08:20 | RADRPT ---
PROCEDURE: CT Brain without. CLINICAL INDICATION: Dizziness, concern for stroke. TECHNIQUE: A CT of the brain was performed on multidetector high-resolution CT scanner utilizing a xial sections from the skull base through the vertex without contrast. The scan was reviewed in sof t tissue brain and high frequency resolution bone algorithm windows. Images were reviewed on a high -resolution PACS workstation. One or more the following does reduction techniques were utilized: Aut omated exposure control, adjustment of the mA/ or kV according to patient's size, or use of iterativ e reconstruction technique. The exam CTDI = 43.68 mGy and the DLP = 720.23 mGy-cm. COMPARISON: None available. FINDINGS: The ventricles and sulci are mildly prominent indicative of volume loss. There is no intracranial he morrhage, mass effect or midline shift. No abnormal intra-axial or extra-axial fluid collections ar e seen. The lombardi/white matter differentiation is preserved. There are mild scattered foci of hypoattenuation in the white matter, which are nonspecific in etiol ogy but likely reflect chronic small vessel ischemic changes. There are mild intracranial vascular calcifications consistent with atherosclerosis. The visualized paranasal sinuses demonstrate mild to moderate mucosal thickening more pronounced in ethmoid air cells and sphenoid sinuses with associat ed fluid levels. The mastoid air cells are essentially clear. IMPRESSION: 1. No acute intracranial hemorrhage, transcortical infarction or mass effect. 2. Mild intracranial atherosclerosis and chronic small vessel ischemic changes. 3. Mild generalized cerebral volume loss. 4. Mild to moderate paranasal sinus disease with associated fluid levels, correlate for acute sinus itis. RPTAT: UU .Chrissy Mena MD, MD Date Time Electronically viewed and signed by .Chrissy Mena MD, MD on 07/02/2016 08:20 .N/
[2016-07-02] MEDS: ALBUTEROL/IPRATROPIUM (NEB) 3 ML AMP HHN SCH ×3 (08:25→21:39)
[2016-07-02 08:29] LABS: ADD SCAN DIFF NO
[2016-07-02] MEDS: METHYLPREDNISOLONE 40 MG INJ IV SCH ×2 (08:29→20:40)
[2016-07-02] MEDS: CEFEPIME 1GM/50 ML (PMX) 50 ML IVPB SCH ×2 (08:29→20:40)
[2016-07-02] MEDS: HYDROCHLOROTHIAZIDE 25 MG TAB PO SCH (08:30)
[2016-07-02] MEDS: FUROSEMIDE 40 MG TAB PO SCH (08:31)
[2016-07-02] MEDS: BENAZEPRIL 40 MG TAB PO SCH (08:31)
[2016-07-02] MEDS: AMLODIPINE 10 MG TAB PO SCH (08:31)
[2016-07-02] MEDS: FLUOXETINE 20 MG CAP PO SCH (08:32)
[2016-07-02] MEDS: OSELTAMIVIR 75 MG CAP PO SCH ×2 (08:32→20:41)
[2016-07-02] MEDS: FAMOTIDINE 20 MG TAB PO SCH ×2 (08:32→20:41)
[2016-07-02 08:36] LABS: BASOPHILS % 0.1 % (0.0-2.0); HEMATOCRIT 46.7 % (37.0-47.0); HEMOGLOBIN 15.5 g/dl (12.0-16.0); LYMPHOCYTES # 1.9 10^3/ul (0.8-2.9); LYMPHOCYTES % 12.6 % (15.0-51.0); MEAN CORPUSCULAR HEMOGLOBIN 28.3 pg (29.0-33.0); MEAN CORPUSCULAR HGB CONC 33.2 g/dl (32.0-37.0); MEAN CORPUSCULAR VOLUME 85.4 fl (82.0-101.0); MEAN PLATELET VOLUME 10.9 fl (7.4-10.4); MONOCYTE # 0.5 10^3/ul (0.3-0.9); MONOCYTES % 3.3 % (0.0-11.0); NEUTROPHIL # 12.6 10^3/ul (1.6-7.5); NEUTROPHILS % 82.1 % (39.0-77.0); PLATELET COUNT 329 10^3/UL (140-415); RED BLOOD COUNT 5.47 10^6/ul (4.20-5.40); RED CELL DISTRIBUTION WIDTH 13.3 % (11.5-14.5); WHITE BLOOD COUNT 15.3 10^3/ul (4.8-10.8)
[2016-07-02] MEDS: ACETAMINOPHEN 325 MG TAB PO PRN (08:36)
[2016-07-02] MEDS: ENOXAPARIN 40 MG/0.4 ML SYG SC SCH (08:45)
[2016-07-02] MEDS: INSULIN ASPART [NOVOLOG] 3 ML PEN SC SCH ×7 (08:46→20:47)
[2016-07-02] MEDS: NPH, HUMAN INSULIN ISOPHANE 3ML VIAL SC SCH ×2 (08:46→20:46)
[2016-07-02 08:52] LABS: ALBUMIN 4.7 g/dl (3.3-4.9)
[2016-07-02 08:53] LABS: POTASSIUM 3.3 mmol/L (3.5-5.1)
[2016-07-02 08:55] LABS: ALBUMIN/GLOBULIN RATIO 1.3; BILIRUBIN,INDIRECT 0.2 mg/dl (0-1.1); BILIRUBIN,TOTAL 0.2 mg/dl (0.2-1.3); CREATININE 0.79 mg/dl (0.44-1.00); TOTAL PROTEIN 8.3 g/dl (6.1-8.1)
[2016-07-02 08:56] LABS: CALCIUM 9.2 mg/dl (8.4-10.2); CHOL/HDL RATIO 3.9 RATIO; MAGNESIUM 2.2 mg/dl (1.7-2.5)
[2016-07-02 10:53] LABS: CREATINE KINASE 63 IU/L (23-200)
[2016-07-02 11:07] LABS: CK-MB 2.07 ng/ml (0.0-2.4)
[2016-07-02 11:26] LABS: TROPONIN-I < 0.012 ng/ml (0.00-0.12)
[2016-07-02] MEDS: hydrALAzine 20 MG INJ IV PRN (11:51)
--- NOTE | 2016-07-02 12:21 | PN ---
Date/Time of Note Date/Time of Note DATE: 07/02/16 TIME: 12:17 Assessment/Plan VTE Prophylaxis VTE Prophylaxis Intervention: LMWH Lines/Catheters [facility] Saline Lock Assessment/Plan Chief Complaint/Hosp Course Assessment and plan 1. Influenza A. Continue on time Tamiflu. Currently on droplet precautions. Await for clinical improvement 2. Suspect community acquired pneumonia. Empirically on antibiotics. Continue with breathing treatments. Titrate down O2 as tolerated. 3. Type 2 diabetes. A1c noted at 7.7. Continue insulin regimen. Will adjust as needed. Of note patient remains on steroid therapy for bronchospasm 4. Dyslipidemia. Continue on statin medication 5. Essential hypertension. Remained stable at present. Resume antihypertensives and adjust as needed 6. Sinus bradycardia. Heart rate was noted as low as 40 bpm. Medical Supply Technician following. Tentative plan for CTA. DVT Provox: Lovenox GERD prophylaxis: H2 stephanie Disposition and plan: Continue broncho-dilators and antibiotics. Will add Advair. Await for clinical improvement of respiratory status. Follow-up on CTA chest. Continue with cardiology recommendations. Discussed plan of care with Dr. Chandler Problems: Subjective 24 Hr Interval Summary Free Text/Dictation Reports minimal that her breathing. Still with congested cough and now wheezing. Exam/Review of Systems Vital Signs Vitals Vital Signs Date Time Temp Pulse Resp B/P Pulse Ox O2 Delivery O2 Flow Rate FiO2 07/02/16 11:10 97.8 70 16 178/77 98 07/02/16 08:46 Nasal Cannula 2.0 06/29/16 23:15 21 Intake and Output 07/01/16 07/01/16 07/02/16 15:00 23:00 07:00 Intake Total 50 ml 720 ml 550 ml Balance 50 ml 720 ml 550 ml Exam Constitutional: alert, oriented Psych: nl mood/affect Head: normocephalic Eyes: nl conjunctiva Neck: non-tender, supple Respiratory: congested cough, wheezing Cardiovascular: regular rate and rhythm Gastrointestinal: non-tender, soft Musculoskeletal: No swelling Extremities: normal pulses 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, nl mental status Skin: nl turgor Results Result Diagram: 07/02/16 0730 07/02/16 0730 Results 24 hrs Laboratory Tests Test 07/01/16 16:41 07/01/16 20:17 07/01/16 21:42 07/02/16 07:30 Bedside Glucose 237 H 205 176 White Blood Count 15.3 #H Red Blood Count 5.47 H Hemoglobin 15.5 Hematocrit 46.7 Mean Corpuscular Volume 85.4 Mean Corpuscular Hemoglobin 28.3 L Mean Corpuscular Hemoglobin Concent 33.2 Red Cell Distribution Width 13.3 Platelet Count 329 # Mean Platelet Volume 10.9 H Neutrophils % 82.1 H Lymphocytes % 12.6 L Monocytes % 3.3 Eosinophils % 0.0 Basophils % 0.1 Nucleated Red Blood Cells % 0.0 Neutrophils # 12.6 H Lymphocytes # 1.9 Monocytes # 0.5 Eosinophils # 0.0 Basophils # 0.0 Nucleated Red Blood Cells # 0.0 Sodium Level 140 Potassium Level 3.3 L Chloride Level 96 L Carbon Dioxide Level 28 Anion Gap 19 #H Blood Urea Nitrogen 26 H Creatinine 0.79 Glucose Level 243 H Calcium Level 9.2 Magnesium Level 2.2 Total Bilirubin 0.2 Direct Bilirubin 0.00 Indirect Bilirubin 0.2 Aspartate Amino Transf (AST/SGOT) 23 Alanine Aminotransferase (ALT/SGPT) 28 Alkaline Phosphatase 88 Creatine Kinase 63 Creatine Kinase Index 3.3 Creatinine Kinase MB (Mass) 2.07 Troponin I < 0.012 B-Type Natriuretic Peptide 318 Total Protein 8.3 H Albumin 4.7 Globulin 3.60 H Albumin/Globulin Ratio 1.30 Triglycerides Level 142 Cholesterol Level 175 LDL Cholesterol, Calculated 103 HDL Cholesterol 44 Cholesterol/HDL Ratio 3.9 Test 07/02/16 08:19 07/02/16 11:50 Bedside Glucose 224 H 279 H Medications Medications Current Medications Ondansetron HCl (Zofran Inj) 4 mg Q6H PRN IV NAUSEA AND/OR VOMITING; Start at 17:30 Acetaminophen (Tylenol Tab) 650 mg Q6H PRN PO PAIN LEVEL 1-3 OR FEVER Last administered on 07/02/16 08:36; Admin Dose 650 MG; Start 06/29/16 at 17:30 Magnesium Hydroxide (Milk Of Mag) 30 ml DAILY PRN PO CONSTIPATION; Start at 17:30 Bisacodyl (Dulcolax) 5 mg DAILY PRN PO CONSTIPATION; Start 06/29/16 at 17:30 Famotidine (Pepcid) 20 mg Q12 PO Last administered on 07/02/16 08:32; Admin Dose 20 MG; Start 06/29/16 at 21:00 Enoxaparin Sodium (Lovenox) 40 mg DAILY SC Last administered on 07/02/16 08:45 ; Admin Dose 40 MG; Start 06/30/16 at 09:00 Oseltamivir Phosphate 75 mg 75 mg BID PO Last administered on 07/02/16 08:32; Admin Dose 75 MG; Start 06/29/16 at 21:00 Cefepime HCl (Maxipime 1gm/50 ml (Pmx)) 50 ml @ 100 mls/hr Q12 IVPB Last administered on 07/02/16 08:29; Admin Dose 100 MLS/HR; Start 06/29/16 at 21:00 Diagnostic Test (Pha) (Accu-Chek) 1 ea 02 XX Last administered on 07/01/16 02: 04; Admin Dose 1 EA; Start 06/30/16 at 02:00 Hydralazine HCl (Apresoline) 10 mg Q6H PRN IV SbP>160 Last administered on 07/01 17:26; Admin Dose 10 MG; Start 06/29/16 at 18:00 Amlodipine Besylate (Norvasc) 10 mg DAILY PO Last administered on 07/02/16 08: 31; Admin Dose 10 MG; Start 06/30/16 at 09:00 Benazepril HCl (Lotensin) 40 mg DAILY PO Last administered on 07/02/16 08:31; Admin Dose 40 MG; Start 06/30/16 at 09:00 Fluoxetine HCl (Prozac) 20 mg DAILY PO Last administered on 07/02/16 08:32; Admin Dose 20 MG; Start 06/30/16 at 09:00 Furosemide (Lasix) 40 mg DAILY PO Last administered on 07/02/16 08:31; Admin Dose 40 MG; Start 06/30/16 at 09:00 Hydrochlorothiazide (Hydrochlorothiazide) 25 mg DAILY PO Last administered on 08:30; Admin Dose 25 MG; Start 06/30/16 at 09:00 Lorazepam (Ativan) 0.5 mg HS PRN PO ANXIETY Last administered on 07/01/16 21: 48; Admin Dose 0.5 MG; Start 06/29/16 at 18:00 Atorvastatin Calcium (Lipitor) 10 mg DAILY@21 PO Last administered on 21:33; Admin Dose 10 MG; Start 06/29/16 at 21:00 Miscellaneous Information 1 ea NOTE XX ; Start 06/29/16 at 18:30 Glucose (Glutose) 15 gm Q15M PRN PO DECREASED GLUCOSE; Start 06/29/16 at 18:30 Glucose (Glutose) 22.5 gm Q15M PRN PO DECREASED GLUCOSE; Start 06/29/16 at 18: 30 Dextrose (D50w Syringe) 25 ml Q15M PRN IV DECREASED GLUCOSE; Start 06/29/16 at 18:30 Dextrose (D50w Syringe) 50 ml Q15M PRN IV DECREASED GLUCOSE; Start 06/29/16 at 18:30 Glucagon (Glucagen) 1 mg Q15M PRN IM DECREASED GLUCOSE; Start 06/29/16 at 18:30 Glucose (Glutose) 15 gm Q15M PRN BUCCAL DECREASED GLUCOSE; Start 06/29/16 at 18 :30 Insulin Glargine (Lantus) 12 unit DAILY@20 SC Last administered on 07/01/16 20 :26; Admin Dose 12 UNIT; Start 06/30/16 at 20:00 Guaifenesin/ Dextromethorphan (Robitussin Dm Liquid Cup) 5 ml Q4H PRN PO Cough Last administered on 06/30/16 17:36; Admin Dose 5 ML; Start 06/30/16 at 14:00 Methylprednisolone Sodium Succinate (Solu-Medrol) 40 mg Q12 IV Last administered on 07/02/16 08:29; Admin Dose 40 MG; Start 07/01/16 at 21:00 Insulin Human NPH (Humulin N) 10 unit BID SC Last administered on 07/02/16 08: 46; Admin Dose 10 UNIT; Start 07/01/16 at 21:00 Carvedilol (Coreg) 3.125 mg BID PO Last administered on 07/02/16 08:30; Admin Dose 3.125 MG; Start 07/01/16 at 21:00 JOSE GROSSMAN Jul 02, 2016 12:21
[2016-07-02] MEDS: SALMETEROL/FLUTICASONE 250/50 INHA INH SCH ×2 (13:00→20:40)
[2016-07-02] MEDS ORDERED: NITROGLYCERIN AEROSOL (4.9 GM) ONE (13:37)
[2016-07-02] MEDS ORDERED: IOHEXOL 100 ML ONE (14:12)
[2016-07-02] MEDS ORDERED: SOD CHLORIDE 0.9% 100 ML ONE (14:12)
[2016-07-02] MEDS ORDERED: IOHEXOL 350MG/ML 50 ML BTL ONE (14:13)
--- NOTE | 2016-07-02 16:01 | RADRPT ---
PROCEDURE: CTA OF THE HEART AND CORONARY ARTERIES WITH CONTRAST CT CALCIUM SCORE CLINICAL INDICATION: Chest pain COMPARISON: No previous relevant images are available for comparison. TECHNIQUE: CT calcium score performed without intravenous contrast. Multiphasic ECG-gated volumetri c acquisition from the ascending aorta to the diaphragm performed with intravenous contrast on a hig h-resolution multi detector scanner with multiphasic reconstructions. Multiplanar reconstructions, t hree-dimensional reconstructions, as well as maximal intensity projection images are produced and re viewed. One or more of the following dose reduction techniques were used: Automated exposure control ; Adjustment of the mA and/or kV according to patient size; Use of iterative reconstruction techniqu e; ECG dose modulation. CTDI = 8, 8, 36, 84 mGy. DLP = 2394 mGy-cm. Stenosis classification of vessels greater than 1.5 mm in diameter: None0% Minimal1-24% Ziic18-88% Trcrxbzl93-42% Qwmdki16-36% [id number]% (When a vessel appears focally occluded with distal reconstitution there may be trac e patency which is below the resolution of the examination or collateral pathways may exist.) CONTRAST: 100 mL of Omnipaque 350 intravenously without adverse event. FINDINGS: CORONARY CT ANGIOGRAM: Overall quality of the CT angiographic examination is partially degraded due to patient body habitus attenuation artifact. Normal origins of the coronary arteries are present. The coronary artery system is left dominant. Total calcium score: 112.8 Right Coronary Artery: Widely patent without focal irregularity, mural plaque, or significant stenos is. The acute marginal branch enhances normally. Left Main Coronary Artery: Widely patent without focal irregularity, mural plaque, or significant st enosis. Left Anterior Descending Coronary Artery: Minimal multifocal calcified and noncalcified plaques with in the proximal and mid segments of the vessel are present producing less than 20% stenosis. Superfi cial bridging is present within the distal segment of the vessel over a length of 15 mm and a depth of less than 2.5 mm. Visualized septal and diagonal branches: Widely patent without focal irregularity, mural plaque, or significant stenosis. Left Circumflex Coronary Artery: Widely patent without focal irregularity, mural plaque, or signific ant stenosis. Visualized obtuse marginal branches: Widely patent throughout, without focal significant stenosis. Normal appearance of the pericardium. No pericardial effusion. Mild multichamber cardiomegaly is pr esent with mild biatrial enlargement. Normal appearing trileaflet aortic valve. Normal appearance of the mitral valve. Myocardial attenuation appears within normal limits. Left atrial appendage is well opacified. No evidence of intracardiac mass or thrombus. EXTRACARDIAC FINDINGS: Aortic measurements as follows: Sinuses of Valsalva: 3.1 x 3.2 x 3.3 cm; cusp - commissure measurements Sinotubular junction: 2.9 cm Mid ascendin.1 cm Proximal arch: 3.6 cm Distal arch: 3.1 cm Mid descendin.6 cm Diaphragm: 2.6 cm Pulmonary vessels: Mild dilatation of the main pulmonary artery measuring 3.5 cm. No evidence of ce ntral filling defect. Conventional pulmonary venous return. Chest: Mild perivascular ground-glass attenuation is present suggestive of mild cardiopulmonary quinten a. A few small benign appearing thin-walled air cysts are observed within the partially visualized l eft lung. No mediastinal lymphadenopathy. Mild peribronchial thickening compatible with small airway s disease. Abdomen: Incidental imaging of the upper abdomen is unremarkable. IMPRESSION: Left dominant coronary system. Total calcium score: 112.8 Right Coronary Artery: Widely patent without focal irregularity, mural plaque, or significant stenos is. Left Main Coronary Artery: Widely patent without focal irregularity, mural plaque, or significant st enosis. Left Anterior Descending Coronary Artery: Minimal multifocal calcified and noncalcified plaques with in the proximal and mid segments of the vessel are present producing less than 20% stenosis. Superfi cial bridging is present within the distal segment of the vessel over a length of 15 mm and a depth of less than 2.5 mm. Left Circumflex Coronary Artery: Widely patent without focal irregularity, mural plaque, or signific ant stenosis. Mild dilatation of the main pulmonary artery measuring 3.5 cm suggestive of pulmonary arterial hyper tension. Perivascular ground-glass infiltrates suggestive of mild cardiopulmonary edema. Dilatation of the thoracic aorta measuring up to 4.1 cm in the mid ascending segment. RPTAT: AADD .Frank Mccarthy MD, MD Date Time Electronically viewed and signed by .Frank Mccarthy MD, on 07/02/2016 16:00 .B/
[2016-07-02] MEDS: SPIRONOLACTONE 25 MG TAB PO SCH (17:47)
--- NOTE | 2016-07-02 18:24 | PN ---
DATE: 07/02/2016 CARDIOLOGY FOLLOWUP SUBJECTIVE: The patient was reviewed and discussed with the staff. The patient remains in sinus rh ythm, sinus bradycardia. She still complains of chest tightness. Cough has improved. MEDICATIONS: Reviewed as per medication reconciliation, personally reviewed. PHYSICAL EXAMINATION: VITAL SIGNS: Temperature 98, heart rate 50, blood pressure 137/70, respiration rate of 18, saturati ng 96%. HEENT: Normocephalic, atraumatic. Pupils are equal. CARDIOVASCULAR: Bradycardic. PULMONARY: With mild wheezes. GASTROINTESTINAL: Soft, nontender. EXTREMITIES: Trivial edema. NEUROLOGIC: Awake and alert. PSYCHIATRIC: Calm, pleasant. LABORATORY: WBC of 15.3, hemoglobin 15.5, platelets 329. Sodium 140, potassium 3.3, BUN of 26, cre atinine 0.79, glucose 243. Troponin negative 0.12. ASSESSMENT AND PLAN: 1. Marked sinus bradycardia. 2. Atypical chest pain, probably related to pulmonary disease and asthma. 3. Haemophilus flu. 4. Influenza A on Tamiflu. 5. Possible pneumonia. 6. Dyslipidemia. 7. Mild hypertension 8. Obesity. RECOMMENDATIONS: I will discontinue carvedilol completely given her wheezing and her marked bradyca rdia. Will add Aldactone to her regimen. Electrolytes including potassium to be replaced as needed . CT coronary angiogram has been done, awaiting to resolve. Electrolytes including potassium to be replaced as needed. Dictated By: HARRIET TUCKER/ATILIO Conf#: [id number] DID#: [id number]
[2016-07-02] MEDS: ATORVASTATIN 10 MG TAB PO SCH (20:41)
[2016-07-02] MEDS: INSULIN GLARGINE [LANtus] 3 ML PEN SC SCH (20:46)
[2016-07-03] VITALS (13 sets, daily range): BP systolic 129–196; BP diastolic 63–77; PULSE 45–73; RESP 16–20
[2016-07-03] MEDS: ACCU-CHEK XX SCH (02:00)
[2016-07-03] MEDS: ACETAMINOPHEN 325 MG TAB PO PRN (03:13)
[2016-07-03 06:49] LABS: ADD SCAN DIFF NO
[2016-07-03 06:53] LABS: HEMATOCRIT 44.3 % (37.0-47.0); HEMOGLOBIN 14.3 g/dl (12.0-16.0); LYMPHOCYTES # 1.7 10^3/ul (0.8-2.9); LYMPHOCYTES % 13.7 % (15.0-51.0); MEAN CORPUSCULAR HEMOGLOBIN 27.6 pg (29.0-33.0); MEAN CORPUSCULAR HGB CONC 32.3 g/dl (32.0-37.0); MEAN CORPUSCULAR VOLUME 85.4 fl (82.0-101.0); MEAN PLATELET VOLUME 10.1 fl (7.4-10.4); MONOCYTE # 0.5 10^3/ul (0.3-0.9); MONOCYTES % 3.7 % (0.0-11.0); NEUTROPHIL # 9.9 10^3/ul (1.6-7.5); PLATELET COUNT 263 10^3/UL (140-415); RED BLOOD COUNT 5.19 10^6/ul (4.20-5.40); RED CELL DISTRIBUTION WIDTH 13.2 % (11.5-14.5); WHITE BLOOD COUNT 12.2 10^3/ul (4.8-10.8)
[2016-07-03 07:02] LABS: CREATININE 0.76 mg/dl (0.44-1.00)
[2016-07-03] MEDS: SALMETEROL/FLUTICASONE 250/50 INHA INH SCH ×2 (08:21→21:33)
[2016-07-03] MEDS: SPIRONOLACTONE 25 MG TAB PO SCH (08:22)
[2016-07-03] MEDS: CEFEPIME 1GM/50 ML (PMX) 50 ML IVPB SCH ×2 (08:22→22:51)
[2016-07-03] MEDS: METHYLPREDNISOLONE 40 MG INJ IV SCH ×2 (08:22→21:32)
[2016-07-03] MEDS: HYDROCHLOROTHIAZIDE 25 MG TAB PO SCH (08:23)
[2016-07-03] MEDS: FLUOXETINE 20 MG CAP PO SCH (08:24)
[2016-07-03] MEDS: FUROSEMIDE 40 MG TAB PO SCH (08:24)
[2016-07-03] MEDS: FAMOTIDINE 20 MG TAB PO SCH ×2 (08:24→21:34)
[2016-07-03] MEDS: AMLODIPINE 10 MG TAB PO SCH (08:24)
[2016-07-03] MEDS: BENAZEPRIL 40 MG TAB PO SCH (08:24)
[2016-07-03] MEDS: OSELTAMIVIR 75 MG CAP PO SCH ×2 (08:25→21:49)
[2016-07-03] MEDS: NPH, HUMAN INSULIN ISOPHANE 3ML VIAL SC SCH ×2 (08:30→21:47)
[2016-07-03] MEDS: ENOXAPARIN 40 MG/0.4 ML SYG SC SCH (08:30)
[2016-07-03] MEDS: INSULIN ASPART [NOVOLOG] 3 ML PEN SC SCH ×7 (08:30→21:43)
[2016-07-03] MEDS: ALBUTEROL/IPRATROPIUM (NEB) 3 ML AMP HHN SCH ×3 (09:29→20:07)
[2016-07-03] MEDS: hydrALAzine 20 MG INJ IV PRN (10:15)
--- NOTE | 2016-07-03 11:05 | PN ---
DATE: 07/03/2016 CARDIOLOGY FOLLOWUP SUBJECTIVE: Discussed with the staff. Rhythm strip was reviewed. The patient remains in sinus rhythm, sinus bradycardia. No reported chest pain or pressure now. Breathing has improved now. MEDICATIONS: Reviewed. PHYSICAL EXAMINATION: VITAL SIGNS: Temperature 98.3, heart rate of 48, blood pressure 190/70, respiratory rate of 18, saturating 94%. HEENT: Normocephalic, atraumatic. Obese female. Pupils are equal. CARDIOVASCULAR: Bradycardic. PULMONARY: With minimal wheezes heard. GASTROINTESTINAL: Obese, soft, nontender. EXTREMITIES: Trivial edema. NEUROLOGIC: Awake and alert. PSYCHIATRIC: Appeared to be calm. LABORATORY DATA: WBC of 12.2, hemoglobin 14.3, platelets 263. Sodium 135, potassium 4, BUN of 30, creatinine 0.76, glucose 228. CT coronary angiogram does not show any significant obstructive coronary artery disease. ASSESSMENT AND PLAN: 1. Chest pain has improved with pulmonary treatment. Negative CT coronary angiogram consistent with non-anginal chest pain. 2. Marked sinus bradycardia, asymptomatic currently. 3. Influenza A, on Tamiflu. 4. Possible pneumonia. 5. Asthma. 6. Dyslipidemia. 7. Morbid obesity 8. Hypertension. RECOMMENDATIONS: We will add clonidine p.r.n. to her regimen. Continue with the rest of her medications. Respiratory care will be managed as per internal medicine. Dictated By: HARRIET TUCKER/ATILIO Conf#: [id number] DID#: [id number] CC: ;*Javier* MAURY
--- NOTE | 2016-07-03 15:50 | PN ---
Date/Time of Note Date/Time of Note DATE: 07/03/16 TIME: 15:47 Assessment/Plan VTE Prophylaxis VTE Prophylaxis Intervention: LMWH Lines/Catheters IV Catheter Type (from [facility]): Saline Lock Urinary Cath still in place: No Assessment/Plan Chief Complaint/Hosp Course Assessment and plan 1. Influenza A. Continue on time Tamiflu. Currently on droplet precautions. The patient improving at present. 2. Suspect community acquired pneumonia. Empirically on antibiotics. Continue with breathing treatments as needed. . Improving. 3. Type 2 diabetes. A1c noted at 7.7. Continue insulin regimen. Will adjust as needed. Of note patient remains on steroid therapy for bronchospasm. We'll start to taper steroids 4. Dyslipidemia. Continue on statin medication 5. Essential hypertension. Remained stable at present. Resume antihypertensives and adjust as needed 6. Sinus bradycardia. Heart rate was noted as low as 40 bpm. Licensed Mental Health Counselor following. CTA of the chest was consistent with nonanginal chest pain. Continue cardiac optimization DVT Provox: Lovenox GERD prophylaxis: H2 stephanie Disposition and plan: Continue broncho-dilators and antibiotics. Still noted with labile blood pressure. Medications adjusted. Await for stable BP prior to DC. Discussed plan of care with Dr. Chandler Problems: Subjective 24 Hr Interval Summary Free Text/Dictation Reports better breathing at this time. Still noted with labile repression Exam/Review of Systems Vital Signs Vitals Vital Signs Date Time Temp Pulse Resp B/P Pulse Ox O2 Delivery O2 Flow Rate FiO2 07/03/16 12:03 73 07/03/16 11:42 98.6 18 167/77 94 07/03/16 09:30 3.0 07/03/16 09:29 Nasal Cannula 06/29/16 23:15 21 Intake and Output 07/02/16 07/02/16 07/03/16 15:00 23:00 07:00 Intake Total 650 ml 246 ml Balance 650 ml 246 ml Exam Constitutional: alert, oriented Psych: nl mood/affect Head: normocephalic Neck: non-tender, supple Respiratory: clear to auscultation Cardiovascular: regular rate and rhythm Gastrointestinal: non-tender, soft Musculoskeletal: nl extremities to inspection 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, nl mental status, nl speech Skin: nl turgor, No rash or lesions Results Result Diagram: 4/26/17 0629 4/26/17 0629 Results 24 hrs Laboratory Tests Test 07/02/16 17:46 07/02/16 20:15 07/03/16 02:21 07/03/16 06:29 Bedside Glucose 267 H 249 H 184 White Blood Count 12.2 #H Red Blood Count 5.19 Hemoglobin 14.3 Hematocrit 44.3 Mean Corpuscular Volume 85.4 Mean Corpuscular Hemoglobin 27.6 L Mean Corpuscular Hemoglobin Concent 32.3 Red Cell Distribution Width 13.2 Platelet Count 263 # Mean Platelet Volume 10.1 Neutrophils % 81.0 H Lymphocytes % 13.7 L Monocytes % 3.7 Eosinophils % 0.0 Basophils % 0.0 Nucleated Red Blood Cells % 0.0 Neutrophils # 9.9 H Lymphocytes # 1.7 Monocytes # 0.5 Eosinophils # 0.0 Basophils # 0.0 Nucleated Red Blood Cells # 0.0 Sodium Level 135 Potassium Level 4.0 Chloride Level 99 Carbon Dioxide Level 29 Anion Gap 11 # Blood Urea Nitrogen 30 H Creatinine 0.76 Glucose Level 228 H Calcium Level 9.0 Test 07/03/16 08:16 07/03/16 12:12 Bedside Glucose 192 302 H Medications Medications Current Medications Ondansetron HCl (Zofran Inj) 4 mg Q6H PRN IV NAUSEA AND/OR VOMITING; Start at 17:30 Acetaminophen (Tylenol Tab) 650 mg Q6H PRN PO PAIN LEVEL 1-3 OR FEVER Last administered on 07/03/16 03:13; Admin Dose 650 MG; Start 06/29/16 at 17:30 Magnesium Hydroxide (Milk Of Mag) 30 ml DAILY PRN PO CONSTIPATION; Start at 17:30 Bisacodyl (Dulcolax) 5 mg DAILY PRN PO CONSTIPATION; Start 06/29/16 at 17:30 Famotidine (Pepcid) 20 mg Q12 PO Last administered on 07/03/16 08:24; Admin Dose 20 MG; Start 06/29/16 at 21:00 Enoxaparin Sodium (Lovenox) 40 mg DAILY SC Last administered on 07/03/16 08:30 ; Admin Dose 40 MG; Start 06/30/16 at 09:00 Oseltamivir Phosphate 75 mg 75 mg BID PO Last administered on 07/03/16 08:25; Admin Dose 75 MG; Start 06/29/16 at 21:00 Cefepime HCl (Maxipime 1gm/50 ml (Pmx)) 50 ml @ 100 mls/hr Q12 IVPB Last administered on 07/03/16 08:22; Admin Dose 100 MLS/HR; Start 06/29/16 at 21:00 Diagnostic Test (Pha) (Accu-Chek) 1 ea 02 XX Last administered on 07/01/16 02: 04; Admin Dose 1 EA; Start 06/30/16 at 02:00 Hydralazine HCl (Apresoline) 10 mg Q6H PRN IV SbP>160 Last administered on 07/03 10:15; Admin Dose 10 MG; Start 06/29/16 at 18:00 Amlodipine Besylate (Norvasc) 10 mg DAILY PO Last administered on 07/03/16 08: 24; Admin Dose 10 MG; Start 06/30/16 at 09:00 Benazepril HCl (Lotensin) 40 mg DAILY PO Last administered on 07/03/16 08:24; Admin Dose 40 MG; Start 06/30/16 at 09:00 Fluoxetine HCl (Prozac) 20 mg DAILY PO Last administered on 07/03/16 08:24; Admin Dose 20 MG; Start 06/30/16 at 09:00 Furosemide (Lasix) 40 mg DAILY PO Last administered on 07/03/16 08:24; Admin Dose 40 MG; Start 06/30/16 at 09:00 Hydrochlorothiazide (Hydrochlorothiazide) 25 mg DAILY PO Last administered on 08:23; Admin Dose 25 MG; Start 06/30/16 at 09:00 Lorazepam (Ativan) 0.5 mg HS PRN PO ANXIETY Last administered on 07/01/16 21: 48; Admin Dose 0.5 MG; Start 06/29/16 at 18:00 Atorvastatin Calcium (Lipitor) 10 mg DAILY@21 PO Last administered on 20:41; Admin Dose 10 MG; Start 06/29/16 at 21:00 Miscellaneous Information 1 ea NOTE XX ; Start 06/29/16 at 18:30 Glucose (Glutose) 15 gm Q15M PRN PO DECREASED GLUCOSE; Start 06/29/16 at 18:30 Glucose (Glutose) 22.5 gm Q15M PRN PO DECREASED GLUCOSE; Start 06/29/16 at 18: 30 Dextrose (D50w Syringe) 25 ml Q15M PRN IV DECREASED GLUCOSE; Start 06/29/16 at 18:30 Dextrose (D50w Syringe) 50 ml Q15M PRN IV DECREASED GLUCOSE; Start 06/29/16 at 18:30 Glucagon (Glucagen) 1 mg Q15M PRN IM DECREASED GLUCOSE; Start 06/29/16 at 18:30 Glucose (Glutose) 15 gm Q15M PRN BUCCAL DECREASED GLUCOSE; Start 06/29/16 at 18 :30 Insulin Glargine (Lantus) 12 unit DAILY@20 SC Last administered on 07/02/16 20 :46; Admin Dose 12 UNIT; Start 06/30/16 at 20:00 Guaifenesin/ Dextromethorphan (Robitussin Dm Liquid Cup) 5 ml Q4H PRN PO Cough Last administered on 06/30/16 17:36; Admin Dose 5 ML; Start 06/30/16 at 14:00 Methylprednisolone Sodium Succinate (Solu-Medrol) 40 mg Q12 IV Last administered on 07/03/16 08:22; Admin Dose 40 MG; Start 07/01/16 at 21:00 Insulin Human NPH (Humulin N) 10 unit BID SC Last administered on 07/03/16 08: 30; Admin Dose 10 UNIT; Start 07/01/16 at 21:00 Salmeterol Xinafoate/ Fluticasone (Advair 250/50 Diskus) 1 inh BID INH Last administered on 07/03/16 08:21; Admin Dose 1 INH; Start 07/02/16 at 13:00 Spironolactone (Aldactone) 25 mg DAILY PO Last administered on 07/03/16 08:22 ; Admin Dose 25 MG; Start 07/02/16 at 17:30 Clonidine (Catapres) 0.1 mg Q4H PRN PO sbp > 170; Start 07/03/16 at 08:30 Hydralazine HCl (Apresoline) 25 mg TID PO Last administered on 07/03/16 12:09 ; Admin Dose 25 MG; Start 07/03/16 at 13:00 JOSE GROSSMAN Jul 03, 2016 15:50
[2016-07-03] MEDS: ATORVASTATIN 10 MG TAB PO SCH (21:34)
[2016-07-03] MEDS: INSULIN GLARGINE [LANtus] 3 ML PEN SC SCH (22:54)
[2016-07-04] VITALS (10 sets, daily range): BP systolic 132–164; BP diastolic 65–78; PULSE 48–83; RESP 17–20
[2016-07-04] MEDS: ACCU-CHEK XX SCH (02:00)
[2016-07-04] MEDS: hydrALAzine 20 MG INJ IV PRN (03:24)
[2016-07-04] MEDS: ALBUTEROL/IPRATROPIUM (NEB) 3 ML AMP HHN SCH ×2 (07:29→14:06)
[2016-07-04 07:38] LABS: ADD SCAN DIFF NO
[2016-07-04 07:44] LABS: BASOPHILS % 0.3 % (0.0-2.0); EOSINOPHILS % 0.1 % (0.0-7.0); HEMOGLOBIN 14.8 g/dl (12.0-16.0); LYMPHOCYTES # 1.6 10^3/ul (0.8-2.9); LYMPHOCYTES % 14.1 % (15.0-51.0); MEAN CORPUSCULAR HEMOGLOBIN 28.5 pg (29.0-33.0); MEAN CORPUSCULAR HGB CONC 33.6 g/dl (32.0-37.0); MEAN CORPUSCULAR VOLUME 84.6 fl (82.0-101.0); MEAN PLATELET VOLUME 10.9 fl (7.4-10.4); MONOCYTE # 0.5 10^3/ul (0.3-0.9); MONOCYTES % 4.5 % (0.0-11.0); NEUTROPHIL # 8.9 10^3/ul (1.6-7.5); NEUTROPHILS % 78.3 % (39.0-77.0); PLATELET COUNT 264 10^3/UL (140-415); RED CELL DISTRIBUTION WIDTH 13.1 % (11.5-14.5); WHITE BLOOD COUNT 11.3 10^3/ul (4.8-10.8)
[2016-07-04] MEDS: INSULIN ASPART [NOVOLOG] 3 ML PEN SC SCH ×6 (07:46→17:41)
[2016-07-04 08:04] LABS: CALCIUM 9.5 mg/dl (8.4-10.2); CREATININE 0.8 mg/dl (0.44-1.00); POTASSIUM 4.3 mmol/L (3.5-5.1)
[2016-07-04] MEDS: METHYLPREDNISOLONE 40 MG INJ IV SCH (08:26)
[2016-07-04] MEDS: SPIRONOLACTONE 25 MG TAB PO SCH (08:26)
[2016-07-04] MEDS: CEFEPIME 1GM/50 ML (PMX) 50 ML IVPB SCH (08:26)
[2016-07-04] MEDS: SALMETEROL/FLUTICASONE 250/50 INHA INH SCH (08:26)
[2016-07-04] MEDS: FUROSEMIDE 40 MG TAB PO SCH (08:27)
[2016-07-04] MEDS: HYDROCHLOROTHIAZIDE 25 MG TAB PO SCH (08:27)
[2016-07-04] MEDS: AMLODIPINE 10 MG TAB PO SCH (08:28)
[2016-07-04] MEDS: OSELTAMIVIR 75 MG CAP PO SCH (08:28)
[2016-07-04] MEDS: FLUOXETINE 20 MG CAP PO SCH (08:28)
[2016-07-04] MEDS: FAMOTIDINE 20 MG TAB PO SCH (08:28)
[2016-07-04] MEDS: BENAZEPRIL 40 MG TAB PO SCH (08:28)
[2016-07-04] MEDS: NPH, HUMAN INSULIN ISOPHANE 3ML VIAL SC SCH (08:36)
[2016-07-04] MEDS: ENOXAPARIN 40 MG/0.4 ML SYG SC SCH (08:36)
--- NOTE | 2016-07-04 10:23 | PN ---
DATE: 07/04/2016 CARDIOLOGY FOLLOWUP SUBJECTIVE: Discussed with the staff. Rhythm strip reviewed. The patient remains in sinus rhythm, sinus bradycardia overnight. The lowest was 46 during the sleep time. The patient says she is fee ling better, breathing better. No chest pain or pressure now. Occasional wheeze is noted . Blood pressure is better this morning. MEDICATIONS: Reviewed. PHYSICAL EXAMINATION: VITAL SIGNS: Temperature 98.3, heart rate of 78 this morning, blood pressure 130/73, respirations 1 8, saturating 93%. HEENT: Normocephalic, atraumatic. Obese female. Pupils are equal. CARDIOVASCULAR: Regular rate and rhythm with systolic murmur. PULMONARY: With mild wheezes on the right side noted mostly. GASTROINTESTINAL: Obese, soft, nontender. EXTREMITIES: With no significant lower extremity edema. NEUROLOGIC: Awake and alert, responds appropriately. PSYCHIATRIC: Appears to be calm. LABORATORY DATA: WBC 11.3, hemoglobin 14.8, platelets of 264. Sodium 135, potassium 4.3, BUN of 34 , creatinine 0.8, glucose of 206. ASSESSMENT AND PLAN: 1. Chest pain has resolved. Negative CT coronary angiogram. 2. Marked sinus bradycardia, improved today. 3. Hypertension level, but currently better controlled. 4. Influenza A, on Tamiflu now. 5. Possible pneumonia. 6. Asthma, status reactive airway disease. 7. Dyslipidemia. 8. Morbid obesity. RECOMMENDATIONS: We will continue with the current cardiac care. Blood pressure currently improved . Pulmonary care as per internal medicine. Dictated By: HARRIET ABRAHAM MD AV/NTS Conf#: [id number] DID#: [id number] CC: ;*EndCC*
[2016-07-04] MEDS ORDERED: LANT3I SC (11:50)
[2016-07-04] MEDS ORDERED: FLUO20CA22 PO (11:50)
[2016-07-04] MEDS ORDERED: FLUT9.9S NASAL (11:50)
[2016-07-04] MEDS ORDERED: SPIR25TA PO (11:50)
[2016-07-04] MEDS ORDERED: HYD25 PO (11:50)
[2016-07-04] MEDS ORDERED: FURO40TA4 PO (11:50)
[2016-07-04] MEDS ORDERED: NOVO3I SC (11:50)
[2016-07-04] MEDS ORDERED: NPH,100V SC (11:50)
[2016-07-04] MEDS ORDERED: MED4DP PO (11:50)
[2016-07-04] MEDS ORDERED: ADV25050 INH (11:50)
[2016-07-04] MEDS ORDERED: CLON0.1T14 PO (11:50)
[2016-07-04] MEDS ORDERED: OSLT75C PO (11:50)
[2016-07-04] MEDS ORDERED: HYDR-3671 PO (11:50)
[2016-07-04] MEDS ORDERED: BENA40TA41 PO (11:50)
--- NOTE | 2016-07-04 13:34 | PDOCDIS ---
Discharge Instructions DIAGNOSIS Discharge Diagnosis: 1. Influenza A 2. Suspect community acquired pneumonia 3. Diabetes CONDITION Patient Condition: Stable HOME CARE INSTRUCTIONS: Diet Instructions: Reduced CalorieSpecial Diet: CARB .CONTROLLED DIET FOLLOW UP/APPOINTMENTS Appointments 1. Follow-up with Dr. Tal Espinosa in one week JOSE GROSSMAN Jul 04, 2016 13:34
[2016-07-04] MEDS ORDERED: INSULIN GLARGINE [LANtus] 3 ML PEN SC SCH (20:00)
--- NOTE | 2016-07-14 11:19 | DS ---
DATE OF ADMISSION: 06/29/2016 DATE OF DISCHARGE: 07/04/2016 HEARING AID ASSISTANT: Brayden Alvarado MD DISCHARGE DIAGNOSES: 1. Sepsis by influenza A. 2. Community-acquired pneumonia. 3. Type 2 diabetes. 4. Dyslipidemia. 5. Essential hypertension. 6. Reported sinus bradycardia. HOSPITAL COURSE: This is a 76-year-old female with reported past medical history of essential hyper tension, type 2 diabetes, dyslipidemia, obesity, who came to [facility] with repor ts of subjective fever and body aches with positive sputum for 5 days' duration. According to the p atient, she went to her PCP and was prescribed a Z-Helder with minimal improvement of her symptoms. Sh radha denied any chest pain, but did report that her symptoms continued to worsen. As such, she was bro ught to [facility] for further evaluation. The patient was provided with antibiot ics for suspicion of community-acquired pneumonia. She also tested positive for influenza A, and wa s given Tamiflu from which she did have good response from. She was otherwise optimized medically. She was provided with insulin for her diabetes and we did adjust this for her reported bronchospasm s and use of steroids for with breathing during her stay. Of note, her A1c was seen at 7.7. She was also resumed on a statin for her dyslipidemia and antihypertensives for her hypertension. S he was seen bradycardic on the monitor. While in the hospital, the heart rate was down in the 40s. No symptoms were reported. She was seen by [employer] analyst for this. She also did report some chest discomfort and did receive a cardiac CT per oracle analyst's recommendations. Per findings, CT melchor ry angiogram was negative for any significant stenosis or occlusion. During her course of stay, she did improve. The plan of care was discussed with the patient and patient did verbalize understandi ng. On the day of discharge, the patient was in stable condition. DISCHARGE PHYSICAL EXAMINATION AND VITAL SIGNS: Stable. CONDITION: Stable. DISCHARGE PLAN: 1. Diet: Reduced calorie and carbohydrate controlled. 2. The patient to follow up with Dr. Tal Espinosa within a week. Discharge process time was 40 minutes. Discussed plan of care with Dr. Chandler. Dictated By: JOSE GROSMSAN NP for ANUSHA WANG/ATILIO Conf#: [id number] [facility]#: [id number]
== END 2016-07-04 18:35 | disposition home or self-care (01) | DRG 871 ==
LOC: E/R 10:06 → TEL 14:50
PROVIDERS: ADMIT Family Medicine; ATTEND Family Medicine
DX: A41.89 Other specified sepsis (principal); J18.9 Pneumonia, unspecified organism; J09.X2 Influenza due to identified novel influenza A virus with other respiratory manifestations; J45.41 Moderate persistent asthma with (acute) exacerbation; E11.9 Type 2 diabetes mellitus without complications; B96.3 Hemophilus influenzae [H. influenzae] as the cause of diseases classified elsewhere; I10 Essential (primary) hypertension; E66.9 Obesity, unspecified; E78.5 Hyperlipidemia, unspecified; Y95 Nosocomial condition; Z68.38 Body mass index [BMI] 38.0-38.9, adult; Z79.4 Long term (current) use of insulin; Z88.6 Allergy status to analgesic agent
CPT/HCPCS: 70450; 71010; 75574; 80048; 80053; 80061; 81001; 81003; 82550; 82553; 82652; 82962; 83036; 83690; 83735; 83880; 84100; 84439; 84443; 84484; 85025; 87040; 87400; 93005; 93306; 93880; 94640; 94644; 94664; 96374; 96375; J0360; J0456; J0692; J0696; J1650; J1815; J2920; J2930; Q9967

== ENCOUNTER 2017-03-10 17:13 | Emergency (ER) | END 2017-03-10 19:39 | disposition home or self-care (01) ==

== ENCOUNTER 2017-12-19 09:34 | Emergency (ER) | END 2017-12-19 12:00 | disposition home or self-care (01) ==